=== PATIENT | female | born 1965 | race African-American/Black ===

== ENCOUNTER 2020-09-13 10:17 | Outpatient (REF) | payer OTHER, SELFPAY ==
[2020-09-13 14:20] LABS: Anion Gap 13 (12-20); Blood Urea Nitrogen 14 mg/dL (9-16); Calcium 9.5 mg/dL (8.4-10.2); Carbon Dioxide 30 mmol/L (22-29); Chloride 103 mmol/L (96-108); Estimated Glomerular Filt Rate > 60; Glucose Random 76 mg/dL (60-115); Potassium 4.1 mmol/L (3.3-5.1); Sodium 142 mmol/L (135-145)
== END 2020-09-13 10:18 | disposition home or self-care (01) ==
LOC: HO.WFDLDS 10:17
PROVIDERS: Visit Provider Hospitalist
DX: L50.1 Idiopathic urticaria (principal)
CPT/HCPCS: 36415; 80048

== ENCOUNTER 2021-12-11 09:23 | Outpatient (REF) | payer OTHER, SELFPAY ==
[2021-12-11 11:51] LABS: Anion Gap 14 (12-20); Blood Urea Nitrogen 12 mg/dL (9-16); Carbon Dioxide 25 mmol/L (22-29); Chloride 106 mmol/L (96-108); Estimated Glomerular Filt Rate > 60; Glucose Random 113 mg/dL (60-115); Potassium 4.4 mmol/L (3.3-5.1); Sodium 141 mmol/L (135-145)
== END 2021-12-11 09:24 | disposition home or self-care (01) ==
LOC: HO.WFDLDS 09:23
PROVIDERS: Visit Provider Hospitalist
DX: I10 Essential (primary) hypertension (principal)
CPT/HCPCS: 36415; 80048

== ENCOUNTER 2023-07-02 15:02 | Outpatient (AMB) | payer OTHER, SELFPAY ==
[2023-07-02 15:12] VITALS: BP 136/76; PULSE 96; RESP 13; TEMP 36.6; O2SAT 99; BMI 51.4
--- NOTE | 2023-07-02 15:12 | MHC.PC.OV ---
Vital Signs 07/02/23 15:12 Height 5 ft Weight 263 lb 4 oz BMI 51.4 BP 136/76 Blood Pressure Location Rt brachial Position Sitting Respiration 13 Pulse 96 Pulse Source Pulse Oximeter Temp 97.8 F Temp Source Temporal Artery Scan Pulse Oximetry (%) 99 Oxygen Delivery Method Room Air Intake Visit Reasons: Transfer of care, BP Intake Note: Patient would like to talk to community navigator. [place] Hammerer Required: No Accompanied by: Self / Same As Patient Allergies amlodipine [From [facility]] Allergy (Intermediate, Verified 07/02/23 15:27) Cough, Rash chlorthalidone Allergy (Intermediate, Verified 07/02/23 15:27) rash Seasonal Allergies Allergy (Intermediate, Verified 07/02/23 15:27) Watery Eye lisinopril Allergy (Verified 07/02/23 15:27) Rash,cough Medication List - Last Reconciled 07/02/23 by Sumanth Layne CNP albuterol sulfate 90 mcg/actuation 2 puffs inhalation Q4H PRN teuvhkg-cqafpfanmupoo-pxevraqo 250-250-65 mg (Excedrin Migraine) 1 tab PO Q4-6H PRN carvedilol 12.5 mg PO BID cetirizine (Zyrtec) 30 mg PO DAILY cholecalciferol (vitamin D3) 125 mcg PO DAILY clonidine HCl 0.1 mg PO BID famotidine 20 mg PO BID furosemide 20 mg PO BID losartan 25 mg PO BID 90 days megestrol 80 mg PO BID Tobacco use date assessed: 07/02/23 Dental Screening Dental Screen Date: 07/02/23 Did you have a dental visit in the last 12 months?: Yes Did you have a dental problem in the last 6 months where you did not have access to dental care?: No Was dental information given to patient?: Patient has dentist HPI HPI Comments History of Present Illness Details 58-year-old female presents for transfer of care Her former PCP is STACIE who is no longer with the practice. Her last office visit was in September 2022. Her last blood work was over a year ago She has history of hypertension, asthma, migraines, obesity, sleep apnea, and uterine cancer. She also reports history of bilateral congenital hip dysplasia, right worse than left. Reports pain to the right hip and knee and slow and difficult movements from sitting to standing She admits to taking her medication as prescribed without adverse reactions She notes that she gained 40 lb within a year since starting megestrol for endometrial cancer. She has been making dietary changes and have not gain weight in the past 2 months. She notes that her FORMING MACHINE UPKEEP MECHANIC HELPER does not recommend hysterectomy because she is Judaism and her lena does not permit blood transfusions She reports swelling to both ankles and dry skin to her legs and feet She is followed by [facility] [employer]MING MACHINE UPKEEP MECHANIC HELPER. Her last pap smear test was 07/2022: endometrial cancer Last colonoscopy: never had a colonoscopy Last mammogram was over 3 years ago : normal [facility] Medical History (Updated 07/02/23 @ 17:04 by Chayo Bender MA) Congenital dysplasia of hips, bilateral Gallbladder calculus Fibroids delivery delivered Surgical History History of hysteroscopy Social History Housing: House Alcohol intake: current Alcohol intake frequency: holidays/special occasions only Alcohol type: other Patient Tobacco Use Status: Never used Tobacco e-Cigarette/Vaping Use: Never Used service: No Current occupational status: employed 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 1. Little interest or pleasure in doing things: not at all 2. Feeling down, depressed, or hopeless: not at all 3. Trouble falling or staying asleep, or sleeping too much: not at all 4. Feeling tired or having little energy: not at all 5. Poor appetite or overeating: several days 6. Feeling bad about yourself - or that you are a failure or have let yourself or your family down: not at all 7. Trouble concentrating on things, such as reading the newspaper or watching television: not at all 8. Moving or speaking so slowly that other people could have noticed. Or the opposite - being so fidgety or restless that you have been moving around a lot more than usual: not at all 9. Thoughts that you would be better off or of hurting yourself in some way: not at all Total score: 1 Depression Screening Interpretation: Negative Depression Screening Done: Yes 29107 - PHQ-9 Billing: Yes Source: Developed by Drs. Salvatore Duran, Claudine Villanueva, Samuel Mistry and colleagues, with an educational alok from [employer]. Thrive Questionnaire Date Thrive assessed: 07/02/23 I am a: Patient What is your living situation today?: I have a steady place to live Within the past 12 months, did the food you bought not last and you didn't have the money to get more?: Sometimes True Within the past 12 months, did you worry whether your food would run out before you got money to buy more?: Sometimes True Do you have trouble paying for medicines?: No Do you have trouble getting transportation to medical appointments?: No Do you have trouble paying your heating and electricity bill?: No Do you have trouble taking care of your child, family member or friend?: Yes () Do you have trouble with day-to-day activities such as bathing, preparing meals, shopping, managing finances, etc.?: No Are you currently unemployed and looking for a job?: No Are you interested in more education?: No Please select the resources that you would like help with: None Currently or been in a relationship where the following occur: no concerns reported AUDIT C Alcohol Use Questionnaire (AUDIT-C) 1. How often do you have a drink containing alcohol?: Monthly or less 2. How many drinks containing alcohol do you have on a typical day when you are drinking?: 1 or 2 3. How often do you have six or more drinks on one occasion?: Never Total Score: 1 BETZY-7 AMB Questionnaire BETZY-7 Date BETZY - 7 assessed: 07/02/23 Feeling nervous, anxious, or on edge: 0 = Not at all Not being able to stop or control worryin = Not at all Worrying too much about different things: 0 = Not at all Trouble relaxin = Not at all Being so restless that it is hard to sit still: 0 = Not at all Becoming easily annoyed or irritable: 0 = Not at all Feeling afraid as if something awful might happen: 0 = Not at all Total BETZY-7 score (0-4 normal; 5-9 mild; 10-14 moderate; 15-21 severe): 0 Source: Developed by Drs. Salvatore Duran, Claudine Villanueva, Samuel Mistry and colleagues, with an educational alok from [employer]. BETZY-7 Assessment Billing BETZY-7 Assessment Tool: BETZY-7 Assessment 25625 ACT Questionnaire In the past 4 weeks, how much of the time did your asthma keep you from getting as much done at work, school or at home?: None of the time During the past 4 weeks, how often have you had shortness of breath?: Once a day During the past 4 weeks, how often did your asthma symptoms wake you up at night or earlier than usual in the morning?: Not at all During the past 4 weeks, how often have you had to use your rescue inhaler or nebulizer medication?: 1-2 times a week How would you rate your asthma control during the past 4 weeks?: Well controlled Score: 18 Review of Systems Const Details: Const Denies chills, Denies fatigue, Denies fever(s), Denies headache(s) and Denies weakness ENT Denies dizziness and Denies headache(s) Card Denies chest pain, Denies lightheadedness, Denies dyspnea and Denies other (Palpitations) Resp Denies cough, Denies dyspnea, Denies wheezing and Denies other ( shortness of breath) GI Denies abdominal pain, Denies melena, Denies hematochezia, Denies change in bowel habits, Denies dyspepsia and Denies nausea Denies hematuria and Denies dysuria Musc Denies abnormal gait, Denies myalgias, Denies arthralgias, Denies numbness and Denies tingling Skin/Breast Reports dry skin to legs and feet, Denies rash, Denies unusual bruising and Denies wounds Neuro Denies abnormal gait, Denies dizziness, Denies headache(s), Denies memory loss, Denies numbness, Denies Sensory deficit (Neuro), Denies tingling and Denies weakness Psych Denies anxiety, Denies depression, Denies memory loss Endo Denies cold intolerance, Denies fatigue, Denies heat intolerance, Denies polydipsia and Denies polyuria Aller/Immun Denies wheezing Physical exam (Primary Care) Vital Signs: Last Vital Signs Temp 97.8 F 07/02/23 15:12 Pulse 96 07/02/23 15:12 Resp 13 07/02/23 15:12 BP 136/76 07/02/23 15:12 Pulse Ox 99 07/02/23 15:12 Oxygen Delivery Method Room Air 07/02/23 15:12 BMI result Body Mass Index 51.4 Tobacco/Smoking Status: Tobacco use Status Tobacco use date assessed 07/02/23 07/02/23 15:28 Patient Tobacco Use Status Never used Tobacco 07/02/23 15:28 e-Cigarette/Vaping Use Never Used 07/02/23 15:28 PHQ-9: PHQ-9 Score PHQ-9: Total score 1 07/02/23 15:28 Depression Screening Interpretation: Negative Thrive Assessment: Date of Thrive Assessment Date Thrive assessed 07/02/23 07/02/23 15:28 Currently or been in a relationship where the following occur: no concerns reported Const Other: General: no acute distress and well developed Nutritional Appearance: well nourished Orientation/consciousness: patient oriented x3 HENMT Head: Yes normocephalic and Yes atraumatic Eyes General: appearance normal, both eyes and all related structures Pupils: Equal, round and reactive pupils present EOM: EOMs intact bilaterally Resp Effort & Inspection: normal respiratory effort Auscultation: clear to auscultation bilaterally Cardio Rate: regular rate Rhythm: regular rhythm Heart sounds: S1 normal heart sound present, S2 normal heart sound present, no gallops, no murmurs and no rubs GI Palpation (GI): No Abdominal aortic bruit present, Soft to palpation, nontender, No hepatosplenomegaly present and No Rebound tenderness present Auscultation: normal bowel sounds General: Yes no CVA tenderness Back/Spine/Pelvis Back: no CVA tenderness Cervical Spine: cervical ROM normal and No Cervical spine tenderness Thoracic/Lumbar Spine: thoraco-lumbar ROM normal, No pain with thoraco-lumbar ROM, No thoracic spinal tenderness and No lumbar spinal tenderness Extrem General: Yes normal to inspection, No calf tenderness Moderate nonpitting edema noted to both ankles She is slow to stand up from a sitting position and pivot with her right hip Skin General: warm and dry. Normal skin color. Normal skin turgor. Very dry skin noted to bilateral lower legs and feet. Skin is intact Lesions: no lesions Rashes: no rashes Trauma: no lacerations or abrasions Wounds: no wounds Nails: normal Neuro General: patient oriented x3, gait slow but normal and no focal neuro deficit Cranial nerves: Yes Equal, round and reactive pupils present Cognition (Neuro): normal cognition Gait exam (Neuro): Slow but normal gait present Sensory Exam: No Sensory deficit (Neuro) Psych Appearance: grossly normal Affect: normal affect Attitude: cooperative Thought process: Normal thought process present Assessment and Plan Assessment & Plan (1) Hypertension, essential, benign: Code(s): I10 - Essential (primary) hypertension Plan: Blood pressure is controlled, 136/76 Continue with current treatment regimen Low-sodium diet encouraged Will continue to monitor Follow-up in 1-2 months for an extended physical exam Return with symptoms or concerns Verbalized understanding and agreed with treatment plan (2) Uterine cancer: Code(s): C55 - Malignant neoplasm of uterus, part unspecified Plan: Megestrol as prescribed Continue follow-up with licensed practical vocational nurse as planned Verbalized understanding and agreed with the plan (3) Asthma, mild intermittent, well-controlled: Code(s): J45.20 - Mild intermittent asthma, uncomplicated Plan: ACT score is 18, partially controlled asthma Continue with current treatment regimen Follow-up with worsening or new symptoms Verbalized understanding and agreed with treatment plan (4) Sleep apnea: Code(s): G47.30 - Sleep apnea, unspecified Plan: Continue to use CPAP as instructed Follow-up with symptoms or concerns Verbalized understanding and agreed with the treatment plan (5) Breast cancer screening: Code(s): Z12.39 - Encounter for other screening for malignant neoplasm of breast Plan: Last mammogram was over 3 years ago : normal Mammogram ordered (6) Colon cancer screening: Code(s): Z12.11 - Encounter for screening for malignant neoplasm of colon Plan: She has never had a colonoscopy done Referred to Gastroenterology for a colonoscopy (7) Dry skin: Code(s): L85.3 - Xerosis cutis Plan: Reports dry skin to her legs and feet Very dry skin noted to bilateral lower legs and feet. Skin is intact Encouraged to use moisturizing lotion like cetaphil routinely Return with symptoms or concerns Verbalized understanding and agreed with plan (8) Swelling of both ankles: Code(s): M25.471 - Effusion, right ankle; M25.472 - Effusion, left ankle Plan: Reports swelling to both ankles Moderate edema noted to both ankles Encouraged to elevate her bilateral lower extremity to reduce swelling Low-salt diet encouraged Follow-up with worsening or new signs and symptoms Verbalized understanding and agreed with treatment plan (9) Chronic right hip pain: Code(s): M25.551 - Pain in right hip; G89.29 - Other chronic pain Plan: Reports pain to the right hip and knee and slow and difficult movements from sitting to standing. She attributes her symptoms to bilateral congenital hip dysplasia, right worse than left Tylenol or ibuprofen as needed for pain or discomfort Referred to physical therapy Follow-up with worsening or new symptoms Verbalized understanding and agreed with treatment plan (10) Chronic pain of right knee: Code(s): M25.561 - Pain in right knee; G89.29 - Other chronic pain Plan: As above Orders: Orders Complete Blood Count Auto Diff Today Z00.00 - Encounter for general adult medical examination without abnormal findings TSH reflex Free T4 Today Z00.00 - Encounter for general adult medical examination without abnormal findings MM screening mammo BI Today Z12.31 - Encounter for screening mammogram for malignant neoplasm of breast PT Evaluation and Treatment Today G89.29 - Other chronic pain, M25.551 - Pain in right hip, M25.561 - Pain in right knee Comprehensive [place]. Panel Fast Today Z00.00 - Encounter for general adult medical examination without abnormal findings Lipid Panel Today Z00.00 - Encounter for general adult medical examination without abnormal findings UA CC w/rflx Micro + Cult Today Z00.00 - Encounter for general adult medical examination without abnormal findings Referrals Gastroenterology Referral Z12.11 - Encounter for screening for malignant neoplasm of colon Medications: Changed From clonidine HCl 0.1 mg PO TID 270 tabs 1RF To clonidine HCl 0.1 mg PO BID Coding Level of Care Code Est Pt Level 4 (67678) Diagnoses Hypertension, essential, benign I10 Uterine cancer C55 Asthma, mild intermittent, well-controlled J45.20 Sleep apnea G47.30 Breast cancer screening Z12.39 Colon cancer screening Z12.11 Dry skin L85.3 Swelling of both ankles M25.471; M25.472 Chronic right hip pain M25.551; G89.29 Chronic pain of right knee M25.561; G89.29 Additional Codes BETZY-7 Assessment Billing - BETZY-7 Assessment Tool: BETZY-7 Assessment 67148 ([id number])
== END 2023-07-02 16:17 | disposition home or self-care (01) ==
PROVIDERS: PCP Hospitalist; Visit Provider Nurse Practitioner Family
DX: I10 Essential (primary) hypertension (principal); C55 Malignant neoplasm of uterus, part unspecified; J45.20 Mild intermittent asthma, uncomplicated; G47.30 Sleep apnea, unspecified; Z12.39 Encounter for other screening for malignant neoplasm of breast; Z12.11 Encounter for screening for malignant neoplasm of colon; L85.3 Xerosis cutis; M25.471 Effusion, right ankle; M25.472 Effusion, left ankle; M25.551 Pain in right hip; G89.29 Other chronic pain; M25.561 Pain in right knee
CPT/HCPCS: 99214

== ENCOUNTER 2023-08-17 09:35 | Outpatient (AMB) | payer OTHER, SELFPAY ==
[2023-08-17 09:35] VITALS: BP 140/73; PULSE 89; BMI 51.2
--- NOTE | 2023-08-17 09:35 | MHC.OFFVIS ---
Intake Vital Signs 08/17/23 09:35 Height 5 ft Weight 262 lb 5.601 oz BMI 51.2 BP 140/73 H Blood Pressure Location Lt brachial Position Sitting Pulse 89 Pulse Source Pulse Oximeter Intake Visit Reasons: Colonoscopy Screening Intake Note: Pt presents to the office today for a colonoscopy screening. Pt states she has never had a previous colonoscopy. Pt denies any GI concerns at this time. Allergies amlodipine [From Norvasc] Allergy (Intermediate, Verified 08/17/23 09:38) Cough, Rash chlorthalidone Allergy (Intermediate, Verified 08/17/23 09:38) rash Seasonal Allergies Allergy (Intermediate, Verified 08/17/23 09:38) Watery Eye lisinopril Allergy (Verified 08/17/23 09:38) Rash,cough HPI Colonoscopy Screening HPI Details 58 year old? female here today for pre colonoscopy screening.? Patient was sent to us by her PCP.? This is her first colonoscopy screening.? Patient denies any gastrointestinal symptoms in the past or at present.? However patient does report to have occasional constipation. Patient reports abdominal bloating. Patient reports that she feels bloated almost all the time. Patient thinks is because of being CPAP throughout the night. Patient denies any melena, hematochezia, unintentional weight loss or ribbon like stools. Denies any personal or family history of gastrointestinal disease, colon polyps, or cancer.? Denies history of difficulty with sedation or anesthesia in the past.? History of sleep apnea, uses CPAP. 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 Patient is on Zyrtec and H2 tierra daily. ? 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 [employer] Current occupational exposures/hazards: No Cognitive needs: No Hearing needs: No Vision needs: No Review of Systems Const Denies weight gain and Denies weight loss ENT Reports no additional complaints, Denies dysphagia and Denies odynophagia Card Reports no additional complaints Resp Reports no additional complaints GI Denies abdominal pain, Denies belching, Denies melena, Denies bloating, Denies change in bowel habits, Reports constipation (Occasional), Denies dysphagia, Denies excessive flatus, Denies dyspepsia, Denies heartburn, Denies diarrhea, Denies loose stools, Denies nausea, Denies odynophagia and Denies vomiting Reports no additional complaints Musc Reports no additional complaints Neuro Reports no additional complaints Psych Reports no additional complaints Endo Reports no additional complaints Physical Exam Vital Signs: Last Vital Signs Pulse 89 08/17/23 09:35 BP 140/73 H 08/17/23 09:35 BMI result Body Mass Index 51.2 Const General: healthy appearing, no acute distress and well developed Nutritional Appearance: obese Orientation/consciousness: patient oriented x3 Resp Effort & Inspection: normal respiratory effort, able to speak in complete sentences, no tracheal deviation and symmetric chest movement Auscultation: clear to auscultation bilaterally Cardio Rate: regular rate GI Inspection: Yes normal to inspection, Yes distended and Yes obesity Palpation (GI): Soft to palpation, not firm, nontender and No hepatosplenomegaly present Auscultation: normal bowel sounds General: Yes no CVA tenderness Back/Spine/Pelvis Back: no CVA tenderness Skin General skin exam: elasticity normal, turgor normal and dry skin Neuro General: patient oriented x3 Psych Appearance: grossly normal Mental Status: mental status grossly normal Assessment & Plan Assessment & Plan (1) Colon cancer screening: Code(s): Z12.11 - Encounter for screening for malignant neoplasm of colon (2) IBS (irritable bowel syndrome): Code(s): K58.9 - Irritable bowel syndrome without diarrhea Qualifiers: Irritable bowel syndrome type: without diarrhea Qualified Code(s): K58.9 - Irritable bowel syndrome without diarrhea Plan Patient is asking to have Cologuard done versus going for colonoscopy at this time. Patient will continue avoiding dietary triggers. Discussed low FODMAP diet. List of food recommended as well as list of food to avoid given to patient. Patient was encouraged to increase fluid intake and activity to promote better bowel motility. I will see her in 4 months, sooner on as needed basis. Patient is agreeable to this plan and verbalizes understanding of instructions. She was given the opportunity to ask questions and all questions answered. Thank you for allowing me to participate in her care Medications: New simethicone 125 mg PO BID-QID PRN 120 caps 3RF abdominal distention Coding Level of Care Code New Pt Level 3 (23650) Diagnoses Colon cancer screening Z12.11 Irritable bowel syndrome without diarrhea K58.9 Irritable bowel syndrome type: without diarrhea Time Spent (min) 40 Comment 30 minutes spent with patient and additional 10 minutes spent reviewing her records
== END 2023-08-17 10:05 | disposition home or self-care (01) ==
PROVIDERS: PCP Nurse Practitioner Family; Visit Provider Nurse Practitioner Family
DX: K58.9 Irritable bowel syndrome, unspecified (principal); Z12.11 Encounter for screening for malignant neoplasm of colon
CPT/HCPCS: 99203

== ENCOUNTER → 2023-08-17 09:35 | Outpatient (BNVA) | payer OTHER, SELFPAY | PROVIDERS: PCP Nurse Practitioner Family; Visit Provider Nurse Practitioner Family ==

== ENCOUNTER 2023-08-18 09:43 | Outpatient (REF) | payer OTHER, SELFPAY ==
[2023-08-18 11:17] LABS: MANUAL DIFF FLAG NO
[2023-08-18 11:36] LABS: Basophils Percent Auto 0.3 % (0-2); Eosinophils Absolute Auto 0.2 X10*3/uL (0.0-0.4); Eosinophils Percent Auto 1.9 % (0-4); Hematocrit 40.2 % (37.0-47.0); Hemoglobin 13.3 g/dl (12.0-16.0); Imm Gran Abs Auto 0.04 X10*3/uL (0.00-0.03); Imm Gran Pct Auto 0.4 % (0.0-0.4); Lymphocytes Absolute Auto 3.8 X10*3/uL (1.2-4.9); Lymphocytes Percent Auto 38.7 % (20-40); Mean Corpuscular HGB Conc 33.1 g/dl (31.0-35.0); Mean Corpuscular Volume 90.5 fL (80.0-98.0); Mean Platelet Volume 9.6 fL (9.4-12.3); Monocytes Absolute Auto 0.7 X10*3/uL (0.1-1.2); Monocytes Percent Auto 6.6 % (2-11); Neutrophils Absolute Auto 5.1 x10*3/uL (2.0-8.3); Neutrophils Percent Auto 52.1 % (45-73); Platelet Count 320 X10*3/uL (160-400); Red Blood Count 4.44 X10*6/uL (4.20-5.50); Red Cell Distribution Width 14.7 % (11.0-16.0); White Blood Count 9.8 X10*3/uL (4.8-10.8)
[2023-08-18 11:37] LABS: Appearance Urine Cloudy; Color Urine Yellow; Glucose Urine UA Negative (Negative); Leukocyte Esterase Urine Large (3+) (Negative); Nitrite Urine Negative (Negative); PH 5.5 (5.0-9.0); Specific Gravity - Urine 1.015 (1.005-1.025); UMIC TRIGGER UACC YES; Urine Blood Negative (Negative); Urine Ketones Negative (Negative); Urine Protein Negative (Neg-Trace)
[2023-08-18 11:45] LABS: Bacteria Urine None Seen (None Seen); Hyaline Casts Urine 0-2 /LPF (0-2); RBC Urine 0-2 /HPF (0-2); UACC Culture Trigger YES; WBC Urine >50 /HPF (0-5)
[2023-08-18 11:51] LABS: Alanine Aminotransferase 12 U/L (0-31); Alkaline Phosphatase 85 U/L (39-117); Anion Gap 17 (12-20); Aspartate Amino Transferase 11 U/L (5-31); Bilirubin Total 0.5 mg/dL (0.0-1.0); Blood Urea Nitrogen 15 mg/dL (9-16); Calcium 9.9 mg/dL (8.4-10.2); Carbon Dioxide 24 mmol/L (22-29); Chloride 107 mmol/L (96-108); Cholesterol 147 mg/dL (<200); Estimated Glomerular Filt Rate 49; Glucose Fasting 131 mg/dL (60-99); HDL Cholesterol 39 mg/dL (>40); LDL Cholesterol Calculated 94 mg/dL (<100); Sodium 144 mmol/L (135-145); Total Protein 7.9 g/dL (6.5-8.0); Triglycerides 71 mg/dL (<150)
[2023-08-18 13:24] LABS: TSH reflex Free T4 1.58 uIU/mL (0.32-4.0)
== END 2023-08-18 09:44 | disposition home or self-care (01) ==
LOC: HO.WFDLDS 09:43
PROVIDERS: Visit Provider Nurse Practitioner Family
DX: Z00.00 Encounter for general adult medical examination without abnormal findings (principal); R82.90 Unspecified abnormal findings in urine
CPT/HCPCS: 36415; 80053; 80061; 81001; 84443; 85025; 87086

== ENCOUNTER → 2023-08-26 12:45 | Outpatient (BNV) | payer OTHER, SELFPAY | PROVIDERS: PCP Nurse Practitioner Family; Visit Provider Radiology Diagnostic Radiology | DX: Z12.31 Encounter for screening mammogram for malignant neoplasm of breast (principal) | CPT/HCPCS: 77063; 77067 ==

== ENCOUNTER 2023-08-26 12:48 | Outpatient (REF) | payer OTHER, SELFPAY ==
--- NOTE | ~2023-08-26 | MM_ITS ---
EXAMINATION: MM SCREENING DIGITAL BREAST TOMOSYNTHESIS, BILATERAL CLINICAL INFORMATION: Screening. Asymptomatic. COMPARISON: Mammography: This study is compared with prior exams dating back to 2016. TECHNIQUE: Digital breast tomosynthesis is performed in both the craniocaudal and mediolateral oblique views along with computer-aided detection (CAD). Synthesized 2D images are generated from the tomosynthesis. FINDINGS: There are scattered areas of fibroglandular density (ACR BI-RADS breast composition Category b). There are few grouped, coarse, benign calcifications in the left breast, there are no significant masses, abnormal calcifications, or other abnormalities in either breast. MM/MM tomosynthesis screening BI IMPRESSION: No mammographic evidence of malignancy. ASSESSMENT: BI-RADS BI-RADS 2 - Benign Findings RECOMMENDATION: Routine annual mammography screening. 1 year F/U This examination should not preclude the clinical evaluation of a suspicious palpable abnormality. This patient's information was entered into a reminder system with a target due date for their next mammogram.
== END 2023-08-26 12:49 | disposition home or self-care (01) ==
LOC: HO.MAMMO 12:48
PROVIDERS: PCP Nurse Practitioner Family; Visit Provider Nurse Practitioner Family
DX: Z12.31 Encounter for screening mammogram for malignant neoplasm of breast (principal)
CPT/HCPCS: 77063; 77067

== ENCOUNTER 2023-09-11 10:47 | Outpatient (AMB) | payer OTHER, SELFPAY ==
[2023-09-11 10:49] VITALS: BP 128/70; PULSE 97; RESP 13; TEMP 36.5; O2SAT 99; BMI 51.4
--- NOTE | 2023-09-11 10:49 | MHC.PC.OV ---
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 Accompanied by: Self / Same As Patient Allergies amlodipine [From [facility]] Allergy (Intermediate, Verified 09/11/23 11:09) Cough, Rash chlorthalidone Allergy (Intermediate, Verified 09/11/23 11:09) rash Seasonal Allergies Allergy (Intermediate, Verified 09/11/23 11:09) Watery Eye lisinopril Allergy (Verified 09/11/23 11:09) Rash,cough Medication List - Last Reconciled 09/11/23 by Sumanth Layne CNP albuterol sulfate 90 mcg/actuation 2 puffs inhalation Q4H PRN hyeifjh-ragssgdwfezyw-zwauoioh 250-250-65 mg (Excedrin Migraine) 1 tab PO Q4-6H PRN carvedilol 12.5 mg PO BID cetirizine (Zyrtec) 30 mg PO DAILY cholecalciferol (vitamin D3) 125 mcg PO DAILY clonidine HCl 0.1 mg PO BID famotidine 20 mg PO BID furosemide 20 mg PO BID losartan 25 mg PO BID 90 days megestrol 80 mg PO BID simethicone 125 mg PO BID-QID PRN Tobacco use date assessed: 09/11/23 Dental Screening Dental Screen Date: 09/11/23 Did you have a dental visit in the last 12 months?: Yes Did you have a dental problem in the last 6 months where you did not have access to dental care?: No Was dental information given to patient?: Patient has dentist HPI HPI Comments History of Present Illness Details 58-year-old female presents for an extended physical exam She has history of hypertension, asthma, migraines, obesity, sleep apnea, IBS and uterine cancer. She also reports history of bilateral congenital hip dysplasia, right worse than left. Reports pain to the right hip and knee and slow and difficult movements from sitting to standing She admits to taking her medication as prescribed without adverse reaction No acute symptoms at this time She is followed by [facility]. Her last pap smear test was 07/2022: endometrial cancer She has never had a colonoscopy. She was seen by [facility] gastroenterology on 08/17/2023; she chose Cologuard test versus colonoscopy Last mammogram was on 08/26/2023: Normal She notes that she has never been vaccinated for shingles and is currently not interested on the vaccines She has not up-to-date on the influenza vaccine and wishes to be vaccinated She has a follow-up appointment with Gastroenterology in 4 months for Cologuard and IBS PFSH Medical History Congenital dysplasia of hips, bilateral Gallbladder calculus Fibroids delivery delivered Surgical History History of hysteroscopy Social History Housing: House Alcohol intake: current Alcohol intake frequency: holidays/special occasions only Alcohol type: other Patient Tobacco Use Status: Never used Tobacco e-Cigarette/Vaping Use: Never Used service: No Current occupational status: employed 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 1. Little interest or pleasure in doing things: not at all 2. Feeling down, depressed, or hopeless: not at all 3. Trouble falling or staying asleep, or sleeping too much: not at all 4. Feeling tired or having little energy: not at all 5. Poor appetite or overeating: not at all 6. Feeling bad about yourself - or that you are a failure or have let yourself or your family down: not at all 7. Trouble concentrating on things, such as reading the newspaper or watching television: not at all 8. Moving or speaking so slowly that other people could have noticed. Or the opposite - being so fidgety or restless that you have been moving around a lot more than usual: not at all 9. Thoughts that you would be better off or of hurting yourself in some way: not at all Total score: 0 Depression Screening Interpretation: Negative Depression Screening Done: Yes [id number] - PHQ-9 Billing: Yes Source: Developed by Drs. Salvatore Duran, Claudine Villanueva, Samuel Mistry and colleagues, with an educational alok from [employer]. Thrive Questionnaire Date Thrive assessed: 09/11/23 I am a: Patient What is your living situation today?: I have a steady place to live Within the past 12 months, did the food you bought not last and you didn't have the money to get more?: Never true Within the past 12 months, did you worry whether your food would run out before you got money to buy more?: Never true Do you have trouble paying for medicines?: No Do you have trouble getting transportation to medical appointments?: No Do you have trouble paying your heating and electricity bill?: No Do you have trouble taking care of your child, family member or friend?: No Do you have trouble with day-to-day activities such as bathing, preparing meals, shopping, managing finances, etc.?: No Are you currently unemployed and looking for a job?: No Are you interested in more education?: No Please select the resources that you would like help with: None Currently or been in a relationship where the following occur: no concerns reported THRIVE Score: 0 AUDIT C Alcohol Use Questionnaire (AUDIT-C) 1. How often do you have a drink containing alcohol?: Monthly or less 2. How many drinks containing alcohol do you have on a typical day when you are drinking?: 1 or 2 3. How often do you have six or more drinks on one occasion?: Never Total Score: 1 BETZY-7 AMB Questionnaire BETZY-7 Date BETZY - 7 assessed: 09/11/23 Feeling nervous, anxious, or on edge: 0 = Not at all Not being able to stop or control worryin = Nearly every day Worrying too much about different things: 3 = Nearly every day Trouble relaxin = Not at all Being so restless that it is hard to sit still: 0 = Not at all Becoming easily annoyed or irritable: 0 = Not at all Feeling afraid as if something awful might happen: 0 = Not at all Total BETZY-7 score (0-4 normal; 5-9 mild; 10-14 moderate; 15-21 severe): 6 Source: Developed by Claudine Matson Kurt Kroenke and colleagues, with an educational alok from [employer]. BETZY-7 Assessment Billing BETZY-7 Assessment Tool: BETZY-7 Assessment 07659 ACT Questionnaire In the past 4 weeks, how much of the time did your asthma keep you from getting as much done at work, school or at home?: None of the time During the past 4 weeks, how often have you had shortness of breath?: Not at all During the past 4 weeks, how often did your asthma symptoms wake you up at night or earlier than usual in the morning?: Not at all During the past 4 weeks, how often have you had to use your rescue inhaler or nebulizer medication?: Once a week or less How would you rate your asthma control during the past 4 weeks?: Completely controlled ACT Interpretation: Positive Score: 24 Review of Systems Const Details: Denies chills, Denies fatigue, Denies fever(s), Denies headache(s) and Denies weakness HEENT Denies change in vision, Denies dizziness, Denies headache(s), Denies hearing loss, Denies nasal congestion, Denies sinus pain, Denies sinus pressure and Denies sore throat Card Denies chest pain, Denies lightheadedness, Denies dyspnea and Denies other (palpitations) Resp Denies cough, Denies dyspnea and Denies wheezing GI Denies abdominal pain, Denies melena, Denies hematochezia, Denies change in bowel habits, Denies dyspepsia and Denies nausea Denies hematuria and Denies dysuria Musc Denies abnormal gait, Denies myalgias, Denies arthralgias, Denies numbness and Denies tingling Skin/Breast Denies rash, Denies unusual bruising and Denies wounds Neuro Denies abnormal gait, Denies dizziness, Denies headache(s), Denies memory loss, Denies numbness, Denies Sensory deficit (Neuro), Denies tingling and Denies weakness Psych Denies anxiety, Denies depression and Denies memory loss Endo Denies cold intolerance, Denies fatigue, Denies heat intolerance, Denies polydipsia and Denies polyuria Frederick/Lymph Denies easy bleeding and Denies easy bruising Aller/Immun Denies wheezing Physical exam (Primary Care) Vital Signs: Last Vital Signs Temp 97.7 F 09/11/23 10:49 Pulse 97 09/11/23 10:49 Resp 13 09/11/23 10:49 BP 128/70 09/11/23 10:49 Pulse Ox 99 09/11/23 10:49 Oxygen Delivery Method Room Air 09/11/23 10:49 BMI result Body Mass Index 51.4 Tobacco/Smoking Status: Tobacco use Status Tobacco use date assessed 09/11/23 09/11/23 11:01 Patient Tobacco Use Status Never used Tobacco 09/11/23 11:01 e-Cigarette/Vaping Use Never Used 09/11/23 11:01 PHQ-9: PHQ-9 Score PHQ-9: Total score 0 09/11/23 11:01 Depression Screening Interpretation: Negative Thrive Assessment: Date of Thrive Assessment Date Thrive assessed 09/11/23 09/11/23 11:01 Currently or been in a relationship where the following occur: no concerns reported Const Other: General: no acute distress, well developed, alert and awake Nutritional Appearance: well nourished Orientation/consciousness: patient oriented x3 HENMT Head: Yes normocephalic and Yes atraumatic Ears: hearing grossly normal bilaterally and TM's normal bilaterally General nose exam: Normal external nose present and Normal nares present Mouth: Normal oral and palatal mucosa present and moist mucous membranes Teeth and gingiva: dentition normal Throat: Yes oropharynx normal Eyes Pupils: Equal, round and reactive pupils present and Pupil accommodation reflex normal EOM: EOMs intact bilaterally Neck Neck: Yes normal visual inspection, Yes no lymphadenopathy and Yes trachea midline Thyroid: Thyroid normal Carotids: no bruits Lymphatic: no lymphadenopathy noted Chest Chest palpation & inspection: normal inspection of the chest Resp Effort & Inspection: normal respiratory effort Auscultation: clear to auscultation bilaterally Cardio Rate: regular rate Rhythm: regular rhythm Heart sounds: S1 normal heart sound present, S2 normal heart sound present, no gallops, no murmurs and no rubs Bruits: no abdominal aortic bruits and no carotid bruits GI Palpation (GI): No Abdominal aortic bruit present, Soft to palpation, nontender, No hepatosplenomegaly present and No Rebound tenderness present Auscultation: normal bowel sounds General: Yes no CVA tenderness Back/Spine/Pelvis Back: no CVA tenderness Cervical Spine: cervical ROM normal and No Cervical spine tenderness Thoracic/Lumbar Spine: thoraco-lumbar ROM normal, No pain with thoraco-lumbar ROM, No thoracic spinal tenderness and No lumbar spinal tenderness Skin General: warm and dry. Normal skin color. Normal skin turgor. Dry skin to her lower legs, ankles, and feet Lesions: no lesions Rashes: no rashes Trauma: no lacerations or abrasions Wounds: no wounds Nails: normal Neuro General: patient oriented x3, gait normal and CN's II-XI intact bilaterally Cranial nerves: Yes Equal, round and reactive pupils present Cognition (Neuro): normal cognition Gait exam (Neuro): Normal gait present Motor exam (neuro): 5/5 motor strength present throughout Sensory Exam: No Sensory deficit (Neuro) Deep tendon reflexes (DTR's): Right patellar reflex intensity grade: 2+ and Left patellar reflex intensity grade: 2+ Extrem General: Yes normal to inspection, No edema and No calf tenderness Psych Appearance: grossly normal Affect: normal affect Attitude: cooperative Thought process: Normal thought process present Assessment and Plan Assessment & Plan (1) Normal physical examination, routine: Code(s): Z00.00 - Encounter for general adult medical examination without abnormal findings Plan: No significant physical restrictions or limitations noted Continue current treatment regimen Healthy diet and routine exercise encouraged Follow-up with symptoms or concerns Verbalized understanding and agreed with treatment plan (2) Elevated fasting glucose: Code(s): R73.01 - Impaired fasting glucose Plan: Recent lab results reviewed with the patient; unremarkable findings except for elevated fasting glucose, 131 Will repeat fasting glucose. 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 Skin is intact She admits to using cetaphil moisturizing cream sparingly Encouraged to use Cetaphil 2-3 times daily Return with symptoms or concerns Verbalized understanding and agreed with plan (5) Vaccine counseling: Code(s): Z71.85 - Encounter for immunization safety counseling Plan: She has not been vaccinated for shingles and declines this vaccine She will receive the flu vaccine at the office today Instructed on importance of vaccination and encouraged to get vaccinated for shingles (6) Vitamin D deficiency: Code(s): E55.9 - Vitamin D deficiency, unspecified Plan: On vitamin D3 125 mcg daily Continue current treatment regimen Will check vitamin-D levels and make changes as needed Orders: Orders Glucose Fasting Today R73.01 - Impaired fasting glucose Vitamin D 25-OH Total Today E55.9 - Vitamin D deficiency, unspecified Coding Level of Care Code Est Pt Prev Care 40-64y(48008) Diagnoses Normal physical examination, routine Z00.00 Elevated fasting glucose R73.01 Morbid obesity with BMI of 50.0-59.9, adult E66.01; Z68.43 Dry skin L85.3 Vaccine counseling Z71.85 Vitamin D deficiency E55.9 Additional Codes BETZY-7 Assessment Billing - BETZY-7 Assessment Tool: BETZY-7 Assessment 48009 ([id number])
== END 2023-09-11 11:39 | disposition home or self-care (01) ==
PROVIDERS: PCP Nurse Practitioner Family; Visit Provider Nurse Practitioner Family
DX: Z00.00 Encounter for general adult medical examination without abnormal findings (principal); E66.01 Morbid (severe) obesity due to excess calories; Z68.43 Body mass index [BMI] 50.0-59.9, adult; Z23 Encounter for immunization; R73.01 Impaired fasting glucose; L85.3 Xerosis cutis; Z71.85 Encounter for immunization safety counseling; E55.9 Vitamin D deficiency, unspecified
CPT/HCPCS: 90471; 90686; 99396

== ENCOUNTER 2023-09-16 10:18 | Outpatient (REF) | payer OTHER, SELFPAY ==
[2023-09-16 14:20] LABS: Appearance Urine Clear; Color Urine Yellow; Glucose Urine UA Negative (Negative); Leukocyte Esterase Urine Moderate (2+) (Negative); Nitrite Urine Negative (Negative); PH 5.5 (5.0-9.0); UMIC TRIGGER UACC YES; Urine Blood Negative (Negative); Urine Ketones Negative (Negative); Urine Protein Negative (Neg-Trace)
[2023-09-16 14:27] LABS: Bacteria Urine None Seen (None Seen); Hyaline Casts Urine 0-2 /LPF (0-2); RBC Urine 0-2 /HPF (0-2); Squamous Epithelial Cell Urine 0-2 /HPF (0-2); UACC Culture Trigger YES
[2023-09-16 15:39] LABS: Glucose Fasting 104 mg/dL (60-99)
[2023-09-16 15:51] LABS: Vitamin D 25-OH Total 39.4 ng/mL (>30)
== END 2023-09-16 10:19 | disposition home or self-care (01) ==
LOC: HO.WFDLDS 10:18
PROVIDERS: Visit Provider Nurse Practitioner Family
DX: R73.01 Impaired fasting glucose (principal); E55.9 Vitamin D deficiency, unspecified; R82.90 Unspecified abnormal findings in urine
CPT/HCPCS: 36415; 81001; 82306; 82947; 87086

== ENCOUNTER 2023-09-22 17:58 | Outpatient (AMB) | payer OTHER, SELFPAY ==
--- NOTE | 2023-09-22 17:35 | MHC.PC.OV ---
Intake Visit Reasons: elevated fasting glucose Defense Attorney Required: No Allergies amlodipine [From [facility]] Allergy (Intermediate, Verified 09/22/23 17:36) Cough, Rash chlorthalidone Allergy (Intermediate, Verified 09/22/23 17:36) rash Seasonal Allergies Allergy (Intermediate, Verified 09/22/23 17:36) Watery Eye lisinopril Allergy (Verified 09/22/23 17:36) Rash,cough Tobacco use date assessed: 09/11/23 HPI HPI Comments History of Present Illness Details Patient presents for telehealth visit for elevated fasting glucose Her previous fasting glucose was elevated, 131, recent fasting glucose is 104 GFR is low, 49 She admits to taking her medications as prescribed without adverse reactions She offers no complaints and denies acute symptoms at this time [facility] Medical History Congenital dysplasia of hips, bilateral Gallbladder calculus Fibroids delivery delivered Surgical History History of hysteroscopy Social History Housing: House Alcohol intake: current Alcohol intake frequency: holidays/special occasions only Alcohol type: other Patient Tobacco Use Status: Never used Tobacco e-Cigarette/Vaping Use: Never Used service: No Current occupational status: employed 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 Salvatore Duran, Claudine Villanueva, Samuel Mistry and colleagues, with an educational alok from [employer]. Review of Systems Const Details: Const Denies chills, Denies fatigue, Denies fever(s), Denies headache(s) and Denies weakness ENT Denies dizziness and Denies headache(s) Card Denies chest pain, Denies lightheadedness, Denies dyspnea and Denies other (Palpitations) Resp Denies cough, Denies dyspnea, Denies wheezing and Denies other ( shortness of breath) GI Denies abdominal pain, Denies melena, Denies hematochezia, Denies change in bowel habits, Denies dyspepsia and Denies nausea Denies hematuria and Denies dysuria Musc Denies abnormal gait, Denies myalgias, Denies arthralgias, Denies numbness and Denies tingling Skin/Breast Denies rash, Denies unusual bruising and Denies wounds Neuro Denies abnormal gait, Denies dizziness, Denies headache(s), Denies memory loss, Denies numbness, Denies Sensory deficit (Neuro), Denies tingling and Denies weakness Psych Denies anxiety, Denies depression, Denies memory loss Endo Denies cold intolerance, Denies fatigue, Denies heat intolerance, Denies polydipsia and Denies polyuria Aller/Immun Denies wheezing Physical exam (Primary Care) Tobacco/Smoking Status: Tobacco use Status Tobacco use date assessed 09/11/23 09/22/23 17:35 Patient Tobacco Use Status Never used Tobacco 09/22/23 17:35 e-Cigarette/Vaping Use Never Used 09/22/23 17:35 Thrive Assessment: Date of Thrive Assessment Date Thrive assessed 09/11/23 09/22/23 17:35 Const Other: Telehealth visit. No physical exam Telehealth Telehealth Location of provider rendering services: practice address Location of patient: address on file Patient Identification confirmed using: Name, : Yes Telehealth method: voice only Patient verbally consented to treatment: Yes Patient verbally consented to billing insurance company: Yes Patient informed of any privacy concerns related to visit: Yes Assessment and Plan Assessment & Plan (1) Elevated fasting glucose: Code(s): R73.01 - Impaired fasting glucose Plan: Recent labs reviewed with the patient Fasting glucose is slightly elevated, 104. Previous fasting glucose was 131 Will check A1c Advised to get blood work done before next visit Follow-up for an office or telehealth visit in 2-3 weeks or return sooner with symptoms or concerns Verbalized understanding and agreed with treatment plan (2) Kidney disease: Code(s): N28.9 - Disorder of kidney and ureter, unspecified Plan: Recent GFR is low, 49 Will recheck kidney function Will also check urine microalbumin/creatinine ratio Will review results and make changes as needed Adequate hydration encouraged She notes that she is followed by Nephrology at [facility] kidney and transplant for hypertension; her last visit was in 05/2023; she has a follow-up appointment on 10/07/2023 Follow-up in 2-3 weeks Verbalized understanding and agreed with the plan Orders: Orders Microalbumin, Random (w Creat) Today N28.9 - Disorder of kidney and ureter, unspecified Hemoglobin A1c Today R73.01 - Impaired fasting glucose Basic Metabolic Panel Today N28.9 - Disorder of kidney and ureter, unspecified Coding Level of Care Code Tele Est Pt Level 3 (34281) Diagnoses Elevated fasting glucose R73.01 Kidney disease N28.9 Time Spent (min) 15
== END 2023-09-22 18:10 | disposition home or self-care (01) ==
LOC: HO.HMGFM 17:58
PROVIDERS: PCP Nurse Practitioner Family; Visit Provider Nurse Practitioner Family
DX: R73.01 Impaired fasting glucose (principal); N28.9 Disorder of kidney and ureter, unspecified
CPT/HCPCS: 99442

== ENCOUNTER 2023-10-07 16:33 | Outpatient (AMB) | payer OTHER, SELFPAY ==
[2023-10-07 16:39] VITALS: BP 150/70; PULSE 93; BMI 51.0
--- NOTE | 2023-10-07 16:39 | MHC.OFFVIS ---
Intake Vital Signs 10/07/23 16:39 Height 5 ft Weight 261 lb 0.437 oz BMI 51.0 BP 150/70 H Blood Pressure Location Lt brachial Position Sitting Pulse 93 Intake Visit Reasons: colonoscopy screening/+ cologuard Intake Note: Patient in office today for follow up to discuss colonoscopy, CC: Patient reports occasional constipation. She is here to discuss colonoscopy after + cologuard. Early Intervention Specialist Required: No Allergies Fish Containing Products Allergy (Severe, Verified 10/07/23 16:44) Anaphylaxis shellfish derived Allergy (Severe, Verified 10/07/23 16:44) Anaphylaxis amlodipine [From Norvasc] Allergy (Intermediate, Verified 10/07/23 16:44) Cough, Rash chlorthalidone Allergy (Intermediate, Verified 10/07/23 16:44) rash Seasonal Allergies Allergy (Intermediate, Verified 10/07/23 16:44) Watery Eye lisinopril Allergy (Verified 10/07/23 16:44) Rash,cough HPI colonoscopy screening/+ cologuard HPI Details Colon cancer screening IBS (irritable bowel syndrome) Plan Patient is asking to have Cologuard done versus going for colonoscopy at this time. Patient will continue avoiding dietary triggers. Discussed low FODMAP diet. List of food recommended as well as list of food to avoid given to patient. Patient was encouraged to increase fluid intake and activity to promote better bowel motility. I will see her in 4 months, sooner on as needed basis. Patient is agreeable to this plan and verbalizes understanding of instructions. She was given the opportunity to ask questions and all questions answered. ? Thank you for allowing me to participate in her care Medications New simethicone 125 mg PO BID-QID PRN 120 caps 3RF abdominal distention TODAY'S VISIT Patient is here today for follow-up and to discuss going for colonoscopy. Patient had positive Cologuard in the beginning of this month. And she is agreeing to go for colorectal screening. Patient reports that now that she is taking Senokot she is moving her bowels better. Patient occasionally will have MiraLax on as needed basis. Patient denies any issues with anesthesia in the past. History of sleep apnea and morbid obesity. Patient is not on any blood thinners, however she is taking Excedrin migraine at times. Patient denies melena, hematochezia, unintentional weight loss or ribbon like stools. No known family history of CRC. Denies any infectious diseases in the past or present. History of asthma. Denies any cardiac or respiratory symptoms. Occasional acid reflux that is controlled with famotidine. 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 [employer] Current occupational exposures/hazards: No Cognitive needs: No Hearing needs: No Vision needs: No Review of Systems Const Denies weight gain and Denies weight loss ENT Reports no additional complaints, Denies dysphagia and Denies odynophagia Card Reports no additional complaints Resp Reports no additional complaints GI Denies abdominal pain, Denies belching, Denies melena, Denies bloating, Denies change in bowel habits, Denies dysphagia, Denies excessive flatus, Denies dyspepsia, Denies heartburn, Denies diarrhea, Denies loose stools, Denies nausea, Denies odynophagia and Denies vomiting Musc Reports no additional complaints Neuro Reports no additional complaints Psych Reports no additional complaints Endo Reports no additional complaints Physical Exam Vital Signs: Last Vital Signs Pulse 93 10/07/23 16:39 BP 150/70 H 10/07/23 16:39 BMI result Body Mass Index 51.0 Const General: healthy appearing and no acute distress Nutritional Appearance: obese Orientation/consciousness: patient oriented x3 Resp Effort & Inspection: normal respiratory effort, able to speak in complete sentences, no tracheal deviation and symmetric chest movement Auscultation: clear to auscultation bilaterally Cardio Rate: regular rate GI Inspection: Yes obesity Palpation (GI): not firm, nontender and No hepatosplenomegaly present Auscultation: normal bowel sounds General: Yes no CVA tenderness Back/Spine/Pelvis Back: no CVA tenderness Skin General skin exam: elasticity normal, turgor normal and dry skin Neuro General: patient oriented x3 Psych Appearance: grossly normal Mental Status: mental status grossly normal Assessment & Plan Assessment & Plan (1) Morbid obesity with BMI of 50.0-59.9, adult: Code(s): E66.01 - Morbid (severe) obesity due to excess calories; Z68.43 - Body mass index [BMI] 50.0-59.9, adult (2) Positive colorectal cancer screening using Cologuard test: Code(s): R19.5 - Other fecal abnormalities (3) IBS (irritable bowel syndrome): Code(s): K58.9 - Irritable bowel syndrome without diarrhea Qualifiers: Irritable bowel syndrome type: without diarrhea Qualified Code(s): K58.9 - Irritable bowel syndrome without diarrhea Plan Patient will continue taking Senokot daily. Patient has sleep apnea and morbid obesity. Has not had recent procedure where she would require anesthesia. However patient denies having any issues with anesthesia in the past. Not on any anticoagulation medication, however is taking Excedrin on as needed basis. Please make sure that patient is not taking Excedrin for 5-7 days before the procedure. Patient denies any cardiac or respiratory symptoms. This will be diagnostic colonoscopy as patient had positive Cologuard. What to expect before during and after procedure discussed with patient. Clear liquid diet as well as good bowel prep discussed with patient. Patient will be seen at the office after the procedure, sooner on as needed basis. Patient is agreeable to this plan and verbalizes understanding of instructions. She was given the opportunity to ask questions and all questions answered. Thank you for allowing me to participate in her care Medications: New bisacodyl (Dulcolax (bisacodyl)) take 4 tabs at noon the day before your colonoscopy 20 mg (4 x 5 mg) PO ONCE 4 tabs 0RF 1 day Z12.11 - Encounter for screening for malignant neoplasm of colon polyethylene glycol 3350 (Miralax) As directed by gastroenterology department at [facility] 238 grams PO ONCE 238 grams 0RF Z12.11 - Encounter for screening for malignant neoplasm of colon sennosides (Natural Senna Laxative) 17.2 mg (2 x 8.6 mg) PO BEDTIME 60 tabs 3RF constipation K59.00 - Constipation, unspecified Coding Level of Care Code Est Pt Level 3 (44780) Diagnoses Morbid obesity with BMI of 50.0-59.9, adult E66.01; Z68.43 Positive colorectal cancer screening using Cologuard test R19.5 Irritable bowel syndrome without diarrhea K58.9 Irritable bowel syndrome type: without diarrhea Time Spent (min) 30 Comment 20 minutes spent with patient and additional 10 minutes spent reviewing her records
== END 2023-10-07 16:56 | disposition home or self-care (01) ==
PROVIDERS: PCP Nurse Practitioner Family; Visit Provider Nurse Practitioner Family
DX: E66.01 Morbid (severe) obesity due to excess calories (principal); Z68.43 Body mass index [BMI] 50.0-59.9, adult; R19.5 Other fecal abnormalities; K58.9 Irritable bowel syndrome, unspecified
CPT/HCPCS: 99213

== ENCOUNTER → 2023-10-07 16:33 | Outpatient (BNVA) | payer OTHER, SELFPAY | PROVIDERS: PCP Nurse Practitioner Family; Visit Provider Nurse Practitioner Family ==

== ENCOUNTER 2024-02-12 11:37 | Outpatient (AMB) | payer OTHER, SELFPAY ==
--- NOTE | 2024-02-12 11:43 | A.OFFPC_ITS ---
Vital Signs 02/12/24 11:46 Height 5 ft Weight 258 lb BMI 50.4 BP 130/62 Blood Pressure Location Rt brachial Position Sitting Respiration 18 Pulse 92 Pulse Source Pulse Oximeter Pulse Oximetry (%) 96 Oxygen Delivery Method Room Air Intake Visit Reasons: FollowUpBlodClogFMLA Intake Note: Patient is here to follow up on Blood Clot, FMLA. Final Cigar And Box Examiner Required: No Dragger: Not Required per policy Accompanied by: Self / Same As Patient Allergies Fish Containing Products Allergy (Severe, Verified 02/12/24 12:15) Anaphylaxis shellfish derived Allergy (Severe, Verified 02/12/24 12:15) Anaphylaxis amlodipine [From Norvasc] Allergy (Intermediate, Verified 02/12/24 12:15) Cough, Rash chlorthalidone Allergy (Intermediate, Verified 02/12/24 12:15) rash Seasonal Allergies Allergy (Intermediate, Verified 02/12/24 12:15) Watery Eye lisinopril Allergy (Verified 02/12/24 12:15) Rash,cough Medication List - Last Reconciled 02/12/24 by Sumanth Layne CNP albuterol sulfate 90 mcg/actuation 2 puffs inhalation Q4H PRN apixaban (Eliquis) 5 mg PO BID puaseoj-lvjpryetwhmmq-ttrqltuw 250-250-65 mg (Excedrin Migraine) 1 tab PO Q4-6H PRN bisacodyl (Dulcolax (bisacodyl)) 20 mg (4 x 5 mg) PO ONCE 1 day carvedilol 12.5 mg PO BID cetirizine (Zyrtec) 30 mg PO DAILY cholecalciferol (vitamin D3) 125 mcg PO DAILY clonidine HCl 0.1 mg PO BID famotidine 20 mg PO BID furosemide 20 mg PO BID losartan 25 mg PO BID 90 days megestrol 80 mg PO BID polyethylene glycol 3350 (Miralax) 238 grams PO ONCE sennosides (Natural Senna Laxative) 17.2 mg (2 x 8.6 mg) PO BEDTIME simethicone 125 mg PO BID-QID PRN Tobacco use date assessed: 02/12/24 Dental Screening Dental Screen Date: 09/11/23 HPI HPI Comments History of Present Illness Details 58-year-old female presents for hospital follow-up visit She was evaluated and treated for DVT at [facility] ED on 01/04/2024. She followed up in the ED after ultrasound revealed DVT at her caramel candy maker helper oncologist office. She has history of uterine cancer and had a D&C on 12/17/2023. She notes her right leg has been swollen since the surgery. Labs, including kidney function were unremarkable with the ED. she was discharged home on Lovenox 120 mg SC every 12 hours x 1 week and instructions to follow-up with her PCP She was placed on Eliquis 5mg daily by her MATERIALS AND PROCESSES MANAGER oncologist. She notes that she has been taking the medication as prescribed without adverse reaction. She notes that she was informed by her MATERIALS AND PROCESSES MANAGER to follow up her her PCP for the DVT in her right leg. She notes the DVT was in her upper leg. She persists swelling from the right need to ankle, improving. 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 Salvatore Duran, Claudine Villanueva, Samuel Mistry and colleagues, with an educational alok from [employer]. Review of Systems Const Details: Const Denies chills, Denies fatigue, Denies fever(s), Denies headache(s) and Denies weakness ENT Denies dizziness and Denies headache(s) Card Denies chest pain, Denies lightheadedness, Denies dyspnea and Denies other (Palpitations) Resp Denies cough, Denies dyspnea, Denies wheezing and Denies other ( shortness of breath) GI Denies abdominal pain, Denies melena, Denies hematochezia, Denies change in bowel habits, Denies dyspepsia and Denies nausea Denies hematuria and Denies dysuria Musc Denies abnormal gait, Denies myalgias, Denies arthralgias, Denies numbness and Denies tingling Skin/Breast Denies rash, Denies unusual bruising and Denies wounds Neuro Denies abnormal gait, Denies dizziness, Denies headache(s), Denies memory loss, Denies numbness, Denies Sensory deficit (Neuro), Denies tingling and Denies weakness Psych Denies anxiety, Denies depression, Denies memory loss Endo Denies cold intolerance, Denies fatigue, Denies heat intolerance, Denies polydipsia and Denies polyuria Aller/Immun Denies wheezing Physical exam (Primary Care) Vital Signs: Last Vital Signs Pulse 92 02/12/24 11:46 Resp 18 02/12/24 11:46 BP 130/62 02/12/24 11:46 Pulse Ox 96 02/12/24 11:46 Oxygen Delivery Method Room Air 02/12/24 11:46 BMI result Body Mass Index 50.4 Tobacco/Smoking Status: Tobacco use Status Tobacco use date assessed 02/12/24 02/12/24 11:45 Patient Tobacco Use Status Never used Tobacco 02/12/24 11:45 e-Cigarette/Vaping Use Never Used 02/12/24 11:45 Thrive Assessment: Date of Thrive Assessment Date Thrive assessed 09/11/23 02/12/24 11:45 Const Other: General: no acute distress and well developed Nutritional Appearance: well nourished Orientation/consciousness: patient oriented x3 HENMT Head: Yes normocephalic and Yes atraumatic Eyes General: appearance normal, both eyes and all related structures Pupils: Equal, round and reactive pupils present EOM: EOMs intact bilaterally Resp Effort & Inspection: normal respiratory effort Auscultation: clear to auscultation bilaterally Cardio Rate: regular rate Rhythm: regular rhythm Heart sounds: S1 normal heart sound present, S2 normal heart sound present, no gallops, no murmurs and no rubs GI Palpation (GI): No Abdominal aortic bruit present, Soft to palpation, nontender, No hepatosplenomegaly present and No Rebound tenderness present Auscultation: normal bowel sounds General: Yes no CVA tenderness Back/Spine/Pelvis Back: no CVA tenderness Cervical Spine: cervical ROM normal and No Cervical spine tenderness Thoracic/Lumbar Spine: thoraco-lumbar ROM normal, No pain with thoraco-lumbar ROM, No thoracic spinal tenderness and No lumbar spinal tenderness Extrem General: Yes normal to inspection Right lower leg is slightly bigger than left. CML WNL. No pitting edema. Positive pedal and posterior tibial pulses bilaterally. No calf tenderness Skin General: warm and dry. Normal skin color. Normal skin turgor Lesions: no lesions Rashes: no rashes Trauma: no lacerations or abrasions Wounds: no wounds Nails: normal Neuro General: patient oriented x3, gait normal and no focal neuro deficit Cranial nerves: Yes Equal, round and reactive pupils present Cognition (Neuro): normal cognition Gait exam (Neuro): Normal gait present Sensory Exam: No Sensory deficit (Neuro) Psych Appearance: grossly normal Affect: normal affect Attitude: cooperative Thought process: Normal thought process present Results AMB Hemoglobin A1c AMB Hemoglobin A1c 9.0 % Last Edit by ARNOL Naylor on 02/12/24 12 :40 Assessment and Plan Assessment & Plan (1) Hospital discharge follow-up: Code(s): Z09 - Encounter for follow-up examination after completed treatment for conditions other than malignant neoplasm Plan: Diagnosed with DVT in December. Was evaluated in the ED and started on Lovenox. She is currently taking Eliquis 5 mg twice daily. She has not been evaluated by vascular. She continues to experience right lower extremity edema from her knee to ankle. No shortness a breath. Right lower leg is slightly bigger than left. CML WNL. No pitting edema. Positive pedal and posterior tibial pulses bilaterally. No calf tenderness. Gait is normal. Advised to continue current treatment regimen. Avoid prolonged standing and elevate the right leg to improve circulation Continue follow-up with caramel candy maker helper Oncology as planned. Referred to vascular surgery Follow-up with symptoms or concerns Verbalized understanding and agreed with the treatment plan (2) Right leg DVT: Code(s): I82.401 - Acute embolism and thrombosis of unspecified deep veins of right lower extremity Plan: As above (3) Diabetes: Code(s): E11.9 - Type 2 diabetes mellitus without complications Plan: She has history of elevated fasting glucose A1c today is 9%, above goal of less than 7.0% She notes she has never been evaluated by Ophthalmology a Podiatry Metformin 500 mg twice daily ordered. Advised to take as prescribed. Instructed on the risks, benefits, and potential adverse reactions of the medication ADA diet and routine exercise encouraged Referred to Ophthalmology and Podiatry Follow-up in 3 months or sooner with symptoms or concerns Verbalized understanding and agreed with the treatment Orders: Orders AMB Hemoglobin A1c Today Z13.9 - Encounter for screening, unspecified Lipid Panel Today E11.9 - Type 2 diabetes mellitus without complications Microalbumin, Random (w Creat) Today E11.9 - Type 2 diabetes mellitus without complications Referrals Ophthalmology Referral E11.9 - Type 2 diabetes mellitus without complications Podiatry Referral E11.9 - Type 2 diabetes mellitus without complications Medications: New metformin 500 mg PO BIDWMEAL 30 days 60 tabs 3RF Coding Level of Care Code Est Pt Level 4 (42412) Complex EM visit Add On G2211 Diagnoses Hospital discharge follow-up Z09 Right leg DVT I82.401 Diabetes E11.9
[2024-02-12 11:46] VITALS: BP 130/62; PULSE 92; RESP 18; O2SAT 96; BMI 50.4
== END 2024-02-12 12:46 | disposition home or self-care (01) ==
PROVIDERS: PCP Nurse Practitioner Family; Visit Provider Nurse Practitioner Family
DX: I82.401 Acute embolism and thrombosis of unspecified deep veins of right lower extremity (principal); Z09 Encounter for follow-up examination after completed treatment for conditions other than malignant neoplasm; E11.9 Type 2 diabetes mellitus without complications
CPT/HCPCS: 83036; 99214

== ENCOUNTER 2024-02-12 12:36 | Outpatient (REF) | payer OTHER, SELFPAY | END 2024-02-12 12:37 | disposition home or self-care (01) | LOC: HO.LAB 12:36 | PROVIDERS: Visit Provider Nurse Practitioner Family | DX: Z13.89 Encounter for screening for other disorder (principal) ==

== ENCOUNTER 2024-03-24 13:10 | Outpatient (AMB) | payer OTHER, SELFPAY ==
[2024-03-24 13:14] VITALS: BP 126/70; PULSE 71; BMI 49.9
--- NOTE | 2024-03-24 13:14 | A.OFFVIS_ITS ---
Vital Signs 03/24/24 13:14 Height 5 ft Weight 255 lb 11.779 oz BMI 49.9 BP 126/70 Blood Pressure Location Rt brachial Position Sitting Pulse 71 Pulse Source Pulse Oximeter Intake Visit Reasons: T2DM/CONFIRMED Intake Note: NEW Patient presents today to establish treatment for Type 2 Diabetes Mellitus: Last Diabetic eye exam was on: DUE Last Podiatry exam was on: Does not see a Dye Machine Tender Most recent HbA1c: 9.0%, 02/12/2024 Random Glucose- 107 mg/dL, Today Engineer Technical Staff Required: No Accompanied by: Self / Same As Patient Allergies Fish Containing Products Allergy (Severe, Verified 03/24/24 13:16) Anaphylaxis shellfish derived Allergy (Severe, Verified 03/24/24 13:16) Anaphylaxis amlodipine [From Norvasc] Allergy (Intermediate, Verified 03/24/24 13:16) Cough, Rash chlorthalidone Allergy (Intermediate, Verified 03/24/24 13:16) rash Seasonal Allergies Allergy (Intermediate, Verified 03/24/24 13:16) Watery Eye lisinopril Allergy (Verified 03/24/24 13:16) Rash,cough Medication List - Last Reconciled 03/24/24 by Ale Grant MD albuterol sulfate 90 mcg/actuation 2 puffs inhalation Q4H PRN apixaban (Eliquis) 5 mg PO BID oernwti-xscwrezfevghe-mixxsopw 250-250-65 mg (Excedrin Migraine) 1 tab PO Q4-6H PRN BD Ultra-Fine Cee Pen Needle (pen needle, diabetic) As directed NS bisacodyl (Dulcolax (bisacodyl)) 20 mg (4 x 5 mg) PO ONCE 1 day carvedilol 12.5 mg PO BID cetirizine (Zyrtec) 30 mg PO DAILY cholecalciferol (vitamin D3) 125 mcg PO DAILY clonidine HCl 0.1 mg PO BID famotidine 20 mg PO BID furosemide 20 mg PO BID lancets test blood glucose once daily NS Lantus U-100 Insulin (insulin glargine) 10 units (0.1 mL) subcut QPM NS losartan 25 mg PO BID 90 days megestrol 80 mg PO BID OneTouch Verio Flex meter (blood-glucose meter) As directed NS OneTouch Verio test strips (blood sugar diagnostic) once daily NS polyethylene glycol 3350 (Miralax) 238 grams PO ONCE sennosides (Natural Senna Laxative) 17.2 mg (2 x 8.6 mg) PO BEDTIME simethicone 125 mg PO BID-QID PRN HPI Comments Details: 58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 Reports instituting some lifestyle changes and has lost 7 pounds since diagnosis. She was prescribed metformin at the time of diagnosis but has not taken it-says this is because she plans to undergo hysterectomy in the near future and says then she will no longer be on the medication. Discussed that A1C could delay surgery Denies polyuria, polydipsia Denies hypoglycemia No known macro/microvascular changes ROS see HPI PHYSICAL EXAM: GENERAL: Alert and oriented x 3. NAD EYES: EOMI. Anicteric. HENT: Moist mucous membranes. No scleral icterus. No cervical lymphadenopathy. LUNGS: Clear to auscultation bilaterally. CARDIOVASCULAR: Regular rate and rhythm. ABDOMEN: Obese, soft, non-tender +bs EXTREMITIES: No edema. Non-tender. SKIN: Acanthosis. NEUROLOGIC: No focal neurological deficits. CN II-XII grossly intact PSYCHIATRIC: Cooperative. 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 [employer] Current occupational exposures/hazards: No Cognitive needs: No Hearing needs: No Vision needs: No Physical Exam Vital Signs: Last Vital Signs Pulse 71 03/24/24 13:14 BP 126/70 03/24/24 13:14 BMI result Body Mass Index 49.9 Results Reviewed Results Reviewed: Laboratory Last Values Glucose (Clinic) 107 mg/dL (60-115) 03/24/24 13:21 Assessment & Plan Assessment & Plan (1) New onset type 2 diabetes mellitus: Code(s): E11.9 - Type 2 diabetes mellitus without complications Category: Medical Plan: Patient hesitant to start medications -she is hoping to normalize blood glucose with lifestyle changes and upcoming hysterectomy which will let her get off of megace. Discussed an A1C 9.0% could potentially delay surgery -she will start checking fasting am glucose. Advised if >200 then she should start insulin as she does not want to have to delay surgery, and moreover she is at risk of micro/macrovascular complications. Discussed goal fasting glucose. She has an appt with vice president of talent acquisition/onc in less than 2 weeks. She will follow up here in 3 weeks for reevaluation Medications: New Lantus U-100 Insulin (insulin glargine) 10 units (0.1 mL) subcut QPM 15 mL 3RF NS BD Ultra-Fine Cee Pen Needle (pen needle, diabetic) As directed 100 ea 3RF NS OneTouch Verio Flex meter (blood-glucose meter) As directed 1 ea 0RF NS E11.9 - Type 2 diabetes mellitus without complications lancets test blood glucose once daily 100 ea 3RF NS E11.9 - Type 2 diabetes mellitus without complications OneTouch Verio test strips (blood sugar diagnostic) once daily 100 ea 3RF NS E11.9 - Type 2 diabetes mellitus without complications Discontinued metformin Discontinued Reason: Doctor's Order 500 mg PO BIDWMEAL 30 days 60 tabs 3RF Coding Level of Care Code Est Pt Level 5 (66246) Diagnoses New onset type 2 diabetes mellitus E11.9 Time Spent (min) 45
[2024-03-24 13:24] LABS: Glucose, Whole Blood 107 mg/dL (60-115)
== END 2024-03-24 13:44 | disposition home or self-care (01) ==
PROVIDERS: PCP Nurse Practitioner Family; Visit Provider Internal Medicine
DX: E11.9 Type 2 diabetes mellitus without complications (principal)
CPT/HCPCS: 99215

== ENCOUNTER → 2024-03-24 13:10 | Outpatient (BNVA) | payer OTHER, SELFPAY | PROVIDERS: PCP Nurse Practitioner Family; Visit Provider Internal Medicine | DX: E11.9 Type 2 diabetes mellitus without complications (principal) | CPT/HCPCS: 82947 ==

== ENCOUNTER 2024-04-14 14:30 | Outpatient (AMB) | payer OTHER, SELFPAY ==
--- NOTE | 2024-04-14 14:34 | A.OFFVIS_ITS ---
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 Accompanied by: Self / Same As Patient Allergies Fish Containing Products Allergy (Severe, Verified 03/24/24 13:16) Anaphylaxis shellfish derived Allergy (Severe, Verified 03/24/24 13:16) Anaphylaxis amlodipine [From Norvasc] Allergy (Intermediate, Verified 03/24/24 13:16) Cough, Rash chlorthalidone Allergy (Intermediate, Verified 03/24/24 13:16) rash Seasonal Allergies Allergy (Intermediate, Verified 03/24/24 13:16) Watery Eye lisinopril Allergy (Verified 03/24/24 13:16) Rash,cough Medication List - Last Reconciled 04/14/24 by Ale Grant MD albuterol sulfate 90 mcg/actuation 2 puffs inhalation Q4H PRN apixaban (Eliquis) 5 mg PO BID fxiiayx-fjznizufjcwjj-fzutdahg 250-250-65 mg (Excedrin Migraine) 1 tab PO Q4-6H PRN BD Ultra-Fine Cee Pen Needle (pen needle, diabetic) As directed NS bisacodyl (Dulcolax (bisacodyl)) 20 mg (4 x 5 mg) PO ONCE 1 day carvedilol 12.5 mg PO BID cetirizine (Zyrtec) 30 mg PO DAILY cholecalciferol (vitamin D3) 125 mcg PO DAILY clonidine HCl 0.1 mg PO BID famotidine 20 mg PO BID furosemide 20 mg PO BID lancets test blood glucose once daily NS Lantus U-100 Insulin (insulin glargine) 10 units (0.1 mL) subcut QPM NS losartan 25 mg PO BID 90 days megestrol 80 mg PO BID OneTouch Verio Flex meter (blood-glucose meter) As directed NS OneTouch Verio test strips (blood sugar diagnostic) once daily NS polyethylene glycol 3350 (Miralax) 238 grams PO ONCE sennosides (Natural Senna Laxative) 17.2 mg (2 x 8.6 mg) PO BEDTIME simethicone 125 mg PO BID-QID PRN HPI Comments Details: 58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 Went to [facility]. Seen here 03/24/24- A1C on 02/12/24 9.0%-that was first diabetic range A1C Explains that since being on megestrol that her glucose as well as her weight have skyrocketed. Reports instituting some lifestyle changes and has lost 7 pounds since diagnosis. She was prescribed metformin at the time of diagnosis but has not taken it-says this is because she plans to undergo hysterectomy in the near future and says then she will no longer be on the medication. Discussed that A1C could delay surgery She did not start the prescribed medication. She has been strictly controlling her diet. She is checking her fasting glucose daily. Her range 86-136 with an average of 108. She is down 2 pounds since last month Denies polyuria, polydipsia Denies hypoglycemia No known macro/microvascular changes ROS see HPI PHYSICAL EXAM: GENERAL: Alert and oriented x 3. NAD EYES: EOMI. Anicteric. HENT: Moist mucous membranes. No scleral icterus. No cervical lymphadenopathy. LUNGS: Clear to auscultation bilaterally. CARDIOVASCULAR: Regular rate and rhythm. ABDOMEN: Obese, soft, non-tender +bs EXTREMITIES: No edema. Non-tender. SKIN: Acanthosis. NEUROLOGIC: No focal neurological deficits. CN II-XII grossly intact PSYCHIATRIC: Cooperative. 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 [employer] Current occupational exposures/hazards: No Cognitive needs: No Hearing needs: No Vision needs: No Physical Exam Vital Signs: Last Vital Signs Pulse 90 04/14/24 14:35 BP 122/66 04/14/24 14:35 BMI result Body Mass Index 49.5 Results Reviewed Results Reviewed: Laboratory Last Values Glucose (Clinic) 122 mg/dL (60-115) H 04/14/24 14:39 Assessment & Plan Assessment & Plan (1) Diabetes: Code(s): E11.9 - Type 2 diabetes mellitus without complications Category: Medical Qualifiers: Diabetes mellitus complication status: without complication Diabetes mellitus half-way insulin use: without half-way use Diabetes mellitus type: type 2 Qualified Code(s): E11.9 - Type 2 diabetes mellitus without complications Plan: Essentially has fixed her glucose with dietary modification. 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
[2024-04-14 14:35] VITALS: BP 122/66; PULSE 90; BMI 49.5
[2024-04-14 14:43] LABS: Glucose, Whole Blood 122 mg/dL (60-115)
== END 2024-04-14 14:53 | disposition home or self-care (01) ==
PROVIDERS: PCP Nurse Practitioner Family; Visit Provider Internal Medicine
DX: E11.9 Type 2 diabetes mellitus without complications (principal)

== ENCOUNTER → 2024-04-14 14:30 | Outpatient (BNVA) | payer OTHER, SELFPAY | PROVIDERS: PCP Nurse Practitioner Family; Visit Provider Internal Medicine | DX: E11.9 Type 2 diabetes mellitus without complications (principal) | CPT/HCPCS: 82947 ==

== ENCOUNTER 2024-04-28 14:25 | Outpatient (AMB) | payer OTHER, SELFPAY ==
[2024-04-28 14:29] VITALS: BMI 49.4
--- NOTE | 2024-04-28 14:29 | A.OFFVIS_ITS ---
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 Most recent R/O DVT was done at [facility] [place] in December 2023, no studies since. Pt is still taking eliquis. Pt states her leg is not hurting like it was previously. Pt states swelling has decreased and does have some dry skin, was getting some weeping previously. 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 Complaints include pain over varicosities, swelling of lower extremities, cramping, fatigue, and heaviness of the lower extremities. It has been affecting there daily activities including walking. It is noted more so in right leg. Of note she has a prior history of right congenital hip dysplasia. She has a history of uterine cancer in addition to 2 prior C-sections. Patient denies any previous venous surgery or injections. Patient reports a history of DVT after her D&C on 12/17/2023. She is being maintained on Eliquis Patient denies any history of phlebitis. Trial of compression includes - [id number] They now present for vascular evaluation regarding their varicose veins. 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[employer] Current occupational exposures/hazards: No Cognitive needs: No Hearing needs: No Vision needs: No Review of Systems Const Reports as per HPI ENT Reports no additional complaints Card Denies chest pain, Denies chest pain at rest and Denies chest pain with activity Resp Denies chest congestion and Denies cough GI Reports no additional complaints Musc Details: pain over varicosities, aching of lower extremities, swelling, cramping, heaviness and tiredness, itching Denies abnormal gait Skin/Breast Reports pruritus and Denies wounds Neuro Reports no additional complaints and Denies abnormal gait Psych Denies no additional complaints Physical Exam Vital Signs: BMI result Body Mass Index 49.4 Const General: cooperative, healthy appearing and comfortable Orientation/consciousness: oriented to person, oriented to place and oriented to time Neck Carotids: no bruits Chest Chest palpation & inspection: normal inspection of the chest and normal palpation of entire chest wall Resp Effort & Inspection: normal respiratory effort and able to speak in complete sentences Cardio Rate: regular rate Heart sounds: S1 normal heart sound present and S2 normal heart sound present Peripheral pulses: Peripheral pulses 2+ throughout GI Inspection: Yes normal to inspection Skin Other: +2 edema, large rope-like varicosities greater than 4 mm CEAP Classification C5 - evidence of healed ulceration in particular the right pretibial surface Ep - Etiology Primary As - superficial veins P - reflux General skin exam: dry skin Neuro General: oriented to person, oriented to place and oriented to time Extrem Right lower extremity: full ROM, normal capillary refill and edema Left lower extremity: full ROM, normal capillary refill and edema Psych Mental Status: mental status grossly normal Assessment & Plan Assessment & Plan (1) Varicose veins of right lower extremity with inflammation: Code(s): I83.11 - Varicose veins of right lower extremity with inflammation Category: Medical Plan: In short, the patient has evidence of venous insufficiency. I have discussed the pathophysiology with the patient. In addition I have provided informational material regarding venous disease to the patient. We have discussed conservative measures including compression, elevation, and exercise. I have also provided a handout regarding appropriate use of compression stockings and where to purchase good compression stockings as well. I have taken the liberty of ordering venous insufficiency testing with the patient. They will follow up with me after testing. The patient had an opportunity to ask questions regarding the treatment plan. All questions were answered. Imaging studies, laboratory studies and physical exam results were discussed and reviewed in detail. No major barriers to understanding were identified. The patient expressed understanding and agreement with the above treatment plan. The patient is aware they should contact our office by phone for worsening of the current condition or the appearance of new symptoms. Thank you for allowing me to participate in the vascular care of this patient. If you have any questions or concerns regarding the treatment for the above condition please do not hesitate to contact me. The office telephone contact is [phone]. This note is constructed using voice recognition software. While every e ffort has been made to ensure accuracy, quality technician fiberglass errors may have been included. Thank you for allowing me to participate in the care of your patient. Yours sincerely, Venancio Lu MD, FACS, R.P.V.I. Orders: Orders US venous duplex LE BI 1 Week I83.11 - Varicose veins of right lower extremity with inflammation Coding Level of Care Code New Pt Level 4 (10763) Diagnoses Varicose veins of right lower extremity with inflammation I83.11
== END 2024-04-28 15:18 | disposition home or self-care (01) ==
PROVIDERS: PCP Nurse Practitioner Family; Visit Provider Surgery Vascular Surgery
DX: I83.11 Varicose veins of right lower extremity with inflammation (principal)
CPT/HCPCS: 99204

== ENCOUNTER → 2024-04-28 14:25 | Outpatient (BNVA) | payer OTHER, SELFPAY | PROVIDERS: PCP Nurse Practitioner Family; Visit Provider Surgery Vascular Surgery ==

== ENCOUNTER 2024-05-13 08:34 | Outpatient (REF) | payer OTHER, SELFPAY ==
--- NOTE | ~2024-05-13 | US_ITS ---
EXAMINATION: US LOWER EXTREMITY VENOUS (REFLUX EXAM), BILATERAL CLINICAL INDICATION: Varicose veins COMPARISON: None. TECHNIQUE: Color flow triplex imaging and compression Doppler was performed to evaluate both the deep and the superficial systems bilaterally. To evaluate the superficial system, the examination was performed in the upright position. Color-flow Doppler ultrasound and compression ultrasound were utilized. In addition, maneuvers were utilized to demonstrate reflux. FINDINGS: RIGHT: 1. DEEP VENOUS ULTRASOUND OF THE RIGHT LOWER EXTREMITY: Common Femoral Vein: Compressible, normal respiratory variation and augmented flow. Popliteal Vein: Compressible, normal augmentation. Deep Venous Reflux: There is no evidence of reflux in the deep system in either the common femoral vein or the popliteal vein. There is no evidence of a Stoddard's cyst. 2. SUPERFICIAL ULTRASOUND WITH DOPPLER OF RIGHT LOWER EXTREMITY: RIGHT GREAT SAPHENOUS VEIN: Saphenofemoral Junction: 5 mm. No reflux. Proximal Thigh: 3 mm. No reflux. Mid Thigh: 4 mm. No reflux. Above Knee: 3 mm. 1688 ms reflux. Below Knee: 3 mm. 872 ms reflux. Mid Calf: 3 mm. 840 ms reflux. Ankle: 4 mm. 636 ms reflux. DUPLICATED GREAT SAPHENOUS VEIN: None RIGHT SMALL SAPHENOUS VEIN: Proximal: 2 mm. No reflux. Distal: 2 mm. No reflux. PERFORATORS: Mid thigh: 2 mm. No reflux Knee: 2 mm. No reflux LEFT: 1. DEEP VENOUS ULTRASOUND OF THE LEFT LOWER EXTREMITY: Common Femoral Vein: Compressible, normal respiratory variation and augmented flow. Popliteal Vein: Compressible, normal augmentation. Deep Venous Reflux: There is no evidence of reflux in the deep system in either the common femoral vein or the popliteal vein. There is no evidence of a Stoddard's cyst. 2. SUPERFICIAL ULTRASOUND WITH DOPPLER OF LEFT LOWER EXTREMITY: LEFT GREAT SAPHENOUS VEIN: Saphenofemoral Junction: 7 mm. No reflux. Proximal Thigh: 8 mm. No reflux. Mid Thigh: 6 mm. No reflux. Above Knee: 5 mm. No reflux. Below Knee: 3 mm. No reflux. Mid Calf: 3 mm. 1328 ms reflux. Ankle: 4 mm. 1188 ms reflux. DUPLICATED GREAT SAPHENOUS VEIN: None LEFT SMALL SAPHENOUS VEIN: Proximal: 2 mm. No reflux. Distal: 2 mm. No reflux. PERFORATORS: Mid small saphenous vein: 2 mm. No reflux Mid calf: 2 mm. No reflux US/US venous duplex LE BI IMPRESSION: Abnormal superficial venous reflux within bilateral great saphenous veins. Abnormal lower extremity venous reflux times: Superficial and deep calf veins: >500 ms Femoropopliteal veins: >1000 ms Perforating veins: >350 ms Labnatty N, John J, Kiara L, Rg AK, Justin SS, Emy Hitchcock M, Arlyn WH. Definition of venous reflux in lower-extremity veins.J Vasc Surg. 2003; [id number]. Electronically signed by: Modesto Vega DO 05/26/2024 06:43 PM EST
== END 2024-05-13 08:35 | disposition home or self-care (01) ==
LOC: HO.US 08:34
PROVIDERS: PCP Nurse Practitioner Family; Visit Provider Surgery Vascular Surgery
DX: I83.11 Varicose veins of right lower extremity with inflammation (principal)
CPT/HCPCS: 93970

== ENCOUNTER 2024-05-19 11:55 | Outpatient (AMB) | payer OTHER, SELFPAY ==
--- NOTE | 2024-05-19 11:59 | MHC.PC.OV ---
Vital Signs 05/19/24 12:10 05/19/24 12:36 Height 5 ft Weight 251 lb BMI 49.0 BP 130/90 H 126/84 Blood Pressure Location Lt brachial Lt brachial Position Sitting Left Lateral Respiration 16 Pulse 101 H Pulse Source Pulse Oximeter Temp 98.2 F Temp Source Oral Pulse Oximetry (%) 97 Oxygen Delivery Method Room Air Intake Visit Reasons: diabetes follow up a1c Intake Note: patient here to follow up Therapeutic Massage Technician Required: No Is last menstrual period known: No Post menopausal: No Patient : No Allergies Fish Containing Products Allergy (Severe, Verified 05/19/24 12:25) Anaphylaxis shellfish derived Allergy (Severe, Verified 05/19/24 12:25) Anaphylaxis amlodipine [From Norvasc] Allergy (Intermediate, Verified 05/19/24 12:25) Cough, Rash chlorthalidone Allergy (Intermediate, Verified 05/19/24 12:25) rash Seasonal Allergies Allergy (Intermediate, Verified 05/19/24 12:25) Watery Eye lisinopril Allergy (Verified 05/19/24 12:25) Rash,cough Medication List - Last Reconciled 05/19/24 by Sumanth Layne CNP albuterol sulfate 90 mcg/actuation 2 puffs inhalation Q4H PRN apixaban (Eliquis) 5 mg PO BID [id number]-[id number]-wvzlouke 250-250-65 mg (Excedrin Migraine) 1 tab PO Q4-6H PRN bisacodyl (Dulcolax (bisacodyl)) 20 mg (4 x 5 mg) PO ONCE 1 day carvedilol 6.25 mg PO BID cetirizine (Zyrtec) 30 mg PO DAILY cholecalciferol (vitamin D3) 125 mcg PO DAILY clonidine HCl 0.1 mg PO BID famotidine 20 mg PO BID furosemide 20 mg PO BID losartan 25 mg PO BID 90 days megestrol 80 mg PO BID polyethylene glycol 3350 (Miralax) 238 grams PO ONCE sennosides (Natural Senna Laxative) 17.2 mg (2 x 8.6 mg) PO BEDTIME Tobacco use date assessed: 05/19/24 Dental Screening Dental Screen Date: 05/19/24 Did you have a dental visit in the last 12 months?: Yes Did you have a dental problem in the last 6 months where you did not have access to dental care?: No Was dental information given to patient?: Patient has dentist HPI HPI Comments History of Present Illness Details 58-year-old female presents for diabetes follow-up She was diagnosed with type 2 diabetes 3 months ago. Her A1c was 9.0%. She was initially prescribed metformin 500 mg twice daily. She was referred to [facility] endocrinology as requested. She was seen by industrial relations worker twice. She admitted that she never took her metformin and was making lifestyle changes instead. Lantus 10 units daily was prescribed by endocrinology but the patient never took it. She was advised by endocrinology to follow-up as needed. She has lost 7 lb since her last visit 3 months ago. She checks her glucose frequently. Her fasting glucose is between 97-115 She right hip pain that has been going on for a while and worsened the past 3 months. She experiences the pain with siting, standing, and walking. No pain at rest. She describes the pain as achy, 3-8/10 on the pain scale. She notes occasional tingling and throbbing, no numbness. Her gait has been unsteady due to the pain. She has history of congenital hip dysphasia. She has been taking Tylenol without relief. She denies fall, injury, or trauma. 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 1. Little interest or pleasure in doing things: not at all 2. Feeling down, depressed, or hopeless: several days 3. Trouble falling or staying asleep, or sleeping too much: not at all 4. Feeling tired or having little energy: several days 5. Poor appetite or overeating: not at all 6. Feeling bad about yourself - or that you are a failure or have let yourself or your family down: several days 7. Trouble concentrating on things, such as reading the newspaper or watching television: not at all 8. Moving or speaking so slowly that other people could have noticed. Or the opposite - being so fidgety or restless that you have been moving around a lot more than usual: several days 9. Thoughts that you would be better off or of hurting yourself in some way: not at all Total score: 4 Depression Screening Interpretation: Negative Depression Screening Done: Yes Source: Developed by Drs. Salvatore Duran, Claudine Villanueva, Samuel Mistry and colleagues, with an educational alok from [employer]. Thrive Questionnaire Date Thrive assessed: 09/11/23 I am a: Parent/Caregiver What is your living situation today?: I have a steady place to live Within the past 12 months, did the food you bought not last and you didn't have the money to get more?: I choose not to answer this question Within the past 12 months, did you worry whether your food would run out before you got money to buy more?: I choose not to answer this question Do you have trouble paying for medicines?: No Do you have trouble getting transportation to medical appointments?: No Do you have trouble paying your heating and electricity bill?: Yes Do you have trouble taking care of your child, family member or friend?: No Do you have trouble with day-to-day activities such as bathing, preparing meals, shopping, managing finances, etc.?: No Are you currently unemployed and looking for a job?: No Are you interested in more education?: No Please select the resources that you would like help with: None Currently or been in a relationship where the following occur: I choose not to answer THRIVE Score: 1 AUDIT C Alcohol Use Questionnaire (AUDIT-C) 1. How often do you have a drink containing alcohol?: Never Total Score: 0 BETZY-7 AMB Questionnaire BETZY-7 Date BETZY - 7 assessed: 09/11/23 Feeling nervous, anxious, or on edge: 0 = Not at all Not being able to stop or control worryin = Several days Worrying too much about different things: 1 = Several days Trouble relaxin = Several days Being so restless that it is hard to sit still: 0 = Not at all Becoming easily annoyed or irritable: 0 = Not at all Feeling afraid as if something awful might happen: 0 = Not at all Total BETZY-7 score (0-4 normal; 5-9 mild; 10-14 moderate; 15-21 severe): 3 Source: Developed by Drs. Salvatore Duran, Claudine Villanueva, Samuel Mistry and colleagues, with an educational alok from [employer]. Review of Systems Const Details: Const Denies chills, Denies fatigue, Denies fever(s), Denies headache(s) and Denies weakness ENT Denies dizziness and Denies headache(s) Card Denies chest pain, Denies lightheadedness, Denies dyspnea and Denies other (Palpitations) Resp Denies cough, Denies dyspnea, Denies wheezing and Denies other ( shortness of breath) GI Denies abdominal pain, Denies melena, Denies hematochezia, Denies change in bowel habits, Denies dyspepsia and Denies nausea Denies hematuria and Denies dysuria Musc Reports as per HPI Skin/Breast Denies rash, Denies unusual bruising and Denies wounds Neuro Reports abnormal gait, Denies dizziness, Denies headache(s), Denies memory loss, Denies numbness, Denies Sensory deficit (Neuro), Denies tingling and Denies weakness Psych Denies anxiety, Denies depression, Denies memory loss Endo Denies cold intolerance, Denies fatigue, Denies heat intolerance, Denies polydipsia and Denies polyuria Aller/Immun Denies wheezing Physical exam (Primary Care) Vital Signs: Last Vital Signs Temp 98.2 F 05/19/24 12:10 Pulse 101 H 05/19/24 12:10 Resp 16 05/19/24 12:10 BP 130/90 H 05/19/24 12:10 Pulse Ox 97 05/19/24 12:10 Oxygen Delivery Method Room Air 05/19/24 12:10 BMI result Body Mass Index 49.0 Tobacco/Smoking Status: Tobacco use Status Tobacco use date assessed 05/19/24 05/19/24 12:13 Patient Tobacco Use Status Never used Tobacco 05/19/24 12:01 e-Cigarette/Vaping Use Never Used 05/19/24 12:01 PHQ-9: PHQ-9 Score PHQ-9: Total score 4 05/19/24 12:01 Depression Screening Interpretation: Negative Thrive Assessment: Date of Thrive Assessment Date Thrive assessed 09/11/23 05/19/24 12:01 Currently or been in a relationship where the following occur: I choose not to answer Const Other: General: no acute distress and well developed Nutritional Appearance: well nourished Orientation/consciousness: patient oriented x3 HENMT Head: Yes normocephalic and Yes atraumatic Eyes General: appearance normal, both eyes and all related structures Pupils: Equal, round and reactive pupils present EOM: EOMs intact bilaterally Resp Effort & Inspection: normal respiratory effort Auscultation: clear to auscultation bilaterally Cardio Rate: regular rate Rhythm: regular rhythm Heart sounds: S1 normal heart sound present, S2 normal heart sound present, no gallops, no murmurs and no rubs GI Palpation (GI): No Abdominal aortic bruit present, Soft to palpation, nontender, No hepatosplenomegaly present and No Rebound tenderness present Auscultation: normal bowel sounds General: Yes no CVA tenderness Back/Spine/Pelvis Back: no CVA tenderness Cervical Spine: cervical ROM normal and No Cervical spine tenderness Thoracic/Lumbar Spine: thoraco-lumbar ROM normal, No pain with thoraco-lumbar ROM, No thoracic spinal tenderness and No lumbar spinal tenderness Extrem General: Yes normal to inspection, No edema and No calf tenderness. Negative straight leg raise. Gait is slightly unsteady. No overt injury or trauma Skin General: warm and dry. Normal skin color. Normal skin turgor Neuro General: patient oriented x3, gait slightly unsteady and no focal neuro deficit Cranial nerves: Yes Equal, round and reactive pupils present Cognition (Neuro): normal cognition Gait exam (Neuro): Normal gait present Sensory Exam: No Sensory deficit (Neuro) Psych Appearance: grossly normal Affect: normal affect Attitude: cooperative Thought process: Normal thought process present Results AMB Hemoglobin A1c AMB Hemoglobin A1c 7.5 % Last Edit by Merry Ge MA on 05/19/24 13:24 Coding Level of Care Code Est Pt Level 4 (61145) Complex EM visit Add On G2211 Diagnoses New onset type 2 diabetes mellitus E11.9 HTN, goal below 130/80 I10 Chronic right hip pain M25.551; G89.29 Assessment & Plan Assessment & Plan (1) New onset type 2 diabetes mellitus: Code(s): E11.9 - Type 2 diabetes mellitus without complications Category: Medical Plan: A1c today is 7.5%, slightly above goal of less than 7.0%. Previous A1c was 9.0% Declines pharmacotherapy. She has been making healthy lifestyle changes Healthy diet and routine exercise encouraged Follow-up in 3 months or sooner with symptoms or concerns Verbalized understanding and agreed with the treatment plan (2) HTN, goal below 130/80: Code(s): I10 - Essential (primary) hypertension Category: Medical Plan: Resting blood pressure is 126/84, slightly above goal of less than 130/80 Continue current treatment regimen Low-sodium diet encouraged Follow-up in 3 months Verbalized understanding and agreed with the treatment plan (3) Chronic right hip pain: Code(s): M25.551 - Pain in right hip; G89.29 - Other chronic pain Category: Medical Plan: Reports chronic right hip pain that has progressively worsened in the past 3 months. She experiences the pain with siting, standing, and walking. The pain is refractory to Tylenol Negative straight leg raise. Gait is slightly unsteady. No overt injury or trauma Likely arthritis Will trial tramadol 50 mg twice daily as needed. Advised to take as prescribed. Instructed on the risks, benefits, and potential adverse reactions of the medication X-ray of the right hip and pelvis ordered. Will review results and make changes as needed Follow-up with worsening or new symptoms Verbalized understanding and agreed with the treatment plan Orders: Orders AMB Hemoglobin A1c Today Z13.9 - Encounter for screening, unspecified XR hip RT w PEL1V Today G89.29 - Other chronic pain, M25.551 - Pain in right hip Medications: New tramadol 50 mg PO BID PRN 28 tabs 0RF pain
[2024-05-19 12:10] VITALS: BP 130/90; PULSE 101; RESP 16; TEMP 36.8; O2SAT 97; BMI 49.0
[2024-05-19 12:36] VITALS: BP 126/84
== END 2024-05-19 12:51 | disposition home or self-care (01) ==
LOC: HO.HMCFM 11:55
PROVIDERS: PCP Nurse Practitioner Family; Visit Provider Nurse Practitioner Family
DX: E11.9 Type 2 diabetes mellitus without complications (principal); I10 Essential (primary) hypertension; M25.551 Pain in right hip; G89.29 Other chronic pain; Z13.9 Encounter for screening, unspecified

== ENCOUNTER → 2024-05-19 11:55 | Outpatient (BNVA) | payer OTHER, SELFPAY | PROVIDERS: PCP Nurse Practitioner Family; Visit Provider Nurse Practitioner Family | DX: E11.9 Type 2 diabetes mellitus without complications (principal); I10 Essential (primary) hypertension; G89.29 Other chronic pain; M25.551 Pain in right hip | CPT/HCPCS: 83036; 96127 ==

== ENCOUNTER 2024-05-24 14:57 | Outpatient (AMB) | payer OTHER, SELFPAY ==
--- NOTE | 2024-05-24 15:01 | MHC.OFFVIS ---
Vital Signs 05/24/24 15:03 Height 5 ft Weight 251 lb BMI 49.0 BP 126/72 Blood Pressure Location Lt brachial Position Sitting Intake Visit Reasons: follow up s/p 05/13/24 Intake Note: Olga is a 59 year old female who presents to the office today for a follow up s/p 05/13/24. Pt states she has tried wearing compression socks but states she believes she is allergic to the elastic in the socks which causes irritation to her skin. Allergies Fish Containing Products Allergy (Severe, Verified 05/24/24 15:05) Anaphylaxis shellfish derived Allergy (Severe, Verified 05/24/24 15:05) Anaphylaxis amlodipine [From Norvasc] Allergy (Intermediate, Verified 05/24/24 15:05) Cough, Rash chlorthalidone Allergy (Intermediate, Verified 05/24/24 15:05) rash Seasonal Allergies Allergy (Intermediate, Verified 05/24/24 15:05) Watery Eye lisinopril Allergy (Verified 05/24/24 15:05) Rash,cough elastic Allergy (Intermediate, Uncoded 05/24/24 15:05) welts HPI HPI follow up s/p 05/13/24: Details: Very pleasant 59-year-old female presents with follow-up for swollen lower extremities. She has a prior history of a DVT diagnosed on 12/17/2023 after D&C. At the current time she is persistently swollen legs. She has had a trial of compression with minimal relief. She now presents for follow-up with venous insufficiency testing. Also of note she has a prior history of an adhesive allergy. 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[employer] Current occupational exposures/hazards: No Cognitive needs: No Hearing needs: No Vision needs: No Review of Systems Const Reports as per HPI ENT Reports no additional complaints Card Denies chest pain, Denies chest pain at rest and Denies chest pain with activity Resp Denies chest congestion and Denies cough GI Reports no additional complaints Musc Details: pain over varicosities, aching of lower extremities, swelling, cramping, heaviness and tiredness, itching Denies abnormal gait Skin/Breast Reports pruritus and Denies wounds Neuro Reports no additional complaints and Denies abnormal gait Psych Denies no additional complaints Physical Exam Vital Signs: Last Vital Signs BP 126/72 05/24/24 15:03 BMI result Body Mass Index 49.0 Const General: cooperative, healthy appearing and comfortable Orientation/consciousness: oriented to person, oriented to place and oriented to time Neck Carotids: no bruits Chest Chest palpation & inspection: normal inspection of the chest and normal palpation of entire chest wall Resp Effort & Inspection: normal respiratory effort and able to speak in complete sentences Cardio Rate: regular rate Heart sounds: S1 normal heart sound present and S2 normal heart sound present Peripheral pulses: Peripheral pulses 2+ throughout GI Inspection: Yes normal to inspection Skin Other: +2 edema, CEAP Classification C4 - skin color changes Ep - Etiology Primary As - superficial veins P - reflux General skin exam: dry skin Neuro General: oriented to person, oriented to place and oriented to time Extrem Right lower extremity: full ROM, normal capillary refill and edema Left lower extremity: full ROM, normal capillary refill and edema Psych Mental Status: mental status grossly normal Assessment & Plan Assessment & Plan (1) Varicose veins of right lower extremity with inflammation: Code(s): I83.11 - Varicose veins of right lower extremity with inflammation Category: Medical Plan: This patient has varicose veins with inflammation. They continue to be a source of discomfort for the patient. The patient has tried conservative treatment with compression, leg elevation and exercise program for over 3 months time. They have been compliant with all treatment. This has provided minimal relief for the patient. I do not anticipate this course of treatment will alter the underlying etiology. The patient has been scheduled for lower extremity venous treatment inclusive of --- right great saphenous vein radiofrequency ablation. Risks, benefits, and complications of this procedure has been discussed in detail with the patient including but not limited to bleeding, infection, and the development of a DVT. The patient has demonstrated a clear understanding and has consented. We will schedule the patient as soon as possible. Thank you for allowing us to participate in this patient's care. If there are any questions or concerns please do not hesitate to contact us. Coding Level of Care Code Est Pt Level 4 (37541) Diagnoses Varicose veins of right lower extremity with inflammation I83.11
[2024-05-24 15:03] VITALS: BP 126/72; BMI 49.0
== END 2024-05-24 15:21 | disposition home or self-care (01) ==
PROVIDERS: PCP Nurse Practitioner Family; Visit Provider Surgery Vascular Surgery
DX: I83.11 Varicose veins of right lower extremity with inflammation (principal)
CPT/HCPCS: 99214

== ENCOUNTER → 2024-05-24 14:57 | Outpatient (BNVA) | payer OTHER, SELFPAY | PROVIDERS: PCP Nurse Practitioner Family; Visit Provider Surgery Vascular Surgery ==

== ENCOUNTER 2024-06-07 11:23 | Day surgery (SDC) | payer OTHER, SELFPAY ==
[2024-06-03 14:56] VITALS: BMI 49.0
[2024-06-07 13:10] VITALS: BMI 48.4
[2024-06-07 13:19] VITALS: BP 147/85; PULSE 89; RESP 16; TEMP 36.3; O2SAT 98
--- NOTE | 2024-06-07 14:22 | MHC.SHP ---
Pre-Procedural Eval Section A - 24 Hr Update-Section A only Date of Service: 06/07/24 Section B - Complete if H&P > 30 days Chief Complaint: Other fecal abnormalities Relevant Family History (Specify if Yes): No Relevant Social History: None Present Medications: see Short Stay Collaborative assessment Medical History: Significant History (Congenital dysplasia of hips, bilateral Gallbladder calculus Fibroids delivery delivered) History of Previous Operations: Relevant previous surgery/procedure and date(s) (History of hysteroscopy) Allergies: Allergies Allergy/AdvReac Type Severity Reaction Status Date / Time Fish Containing Products Allergy Severe Anaphylaxis Verified 06/07/24 13:35 shellfish derived Allergy Severe Anaphylaxis Verified 06/07/24 13:35 amlodipine [From Norvasc] Allergy Intermediate Cough, Rash Verified 06/07/24 13:35 chlorthalidone Allergy Intermediate rash Verified 06/07/24 13:35 Seasonal Allergies Allergy Intermediate Watery Eye Verified 06/07/24 13:35 lisinopril Allergy Rash,cough Verified 06/07/24 13:35 elastic Allergy Intermediate welts Uncoded 06/07/24 13:35 Review of Systems Sugical H&P ROS: Negative: Constitution, Cardiovascular, Respiratory, Neurological, Psychiatric, Hem-Onc, Allergic/Immunologic, Gastrointestinal, Genitourinary, Musculoskeletal, Integumentary, Endocrine and Eyes/Ears/Nose/Throat Exam Surgical H&P Exam: Normal: HEENT, Normal: Heart, Normal: Lungs, Normal: Extremities, Normal: Abdomen, Normal: Skin and Normal: Neurological Plan Diagnosis/Plan: Unchanged I have reviewed the history and physical and performed a pertinent physical examination on my patient. No changes have occurred unless specified. Time Spent With Patient Time: Total time managing care of this patient today ____ minutes.
--- NOTE | 2024-06-07 14:52 | HO.OPN-COLON ---
Colonoscopy Operative Note Operative Note Date of Service: 06/07/24 Narrative: Operative Information Procedure Description: Colonoscopy Indication: screening Anesthesia: MAC COLONOSCOPY Instrument: Olympus variable stiffness pediatric scope 190L Colonoscopy Monitoring: Vital signs and clinical assessment, continuous EKG monitoring, Pulse oximetry, Carbon Dioxide monitoring and blood pressure monitoring were done throughout the procedure. Colon withdrawal time was 9 minutes. Procedure: The patient was placed in the left lateral decubitis position and pre-procedure medications were administered. After a digital rectal examination of the ano-rectum, the video colonoscope was inserted into the rectum and advanced through the colon to the cecum/TI. The colonoscope was slowly withdrawn in a retrograde panoramic fashion and the colon mucosa was carefully examined including a retroflexed view of the rectum. Findings and interventions are described below. Procedure Difficulty: easy Findings: Terminal Ileum-normal Cecum:normal Ascending Colon: normal Transverse Colon -normal Descending Colon:normal Sigmoid Colon: 4-5 mm sessile polyp removed with cold forceps, 8-9 mm sessile polyp removed with cold snare, mild diverticulosis Rectum: Retroflexion with small internal hemorrhoids seen, grade I Anorectum - normal Intervention: cold forceps, cold snare Colon preparation: Carbon Bowel Preparation Scale Right colon; 1-2 Transverse colon: 2 Left colon; 1-2 (0 = Unprepared colon segment with mucosa not seen due to solid stool that cannot be cleared. 1 = Portion of mucosa of the colon segment seen, but other areas of the colon segment not well seen due to staining, residual stool and/or opaque liquid. 2 = Minor amount of residual staining, small fragments of stool and/or opaque liquid, but mucosa of colon segment seen well. 3 = Entire mucosa of colon segment seen well with no residual staining, small fragments of stool or opaque liquid) Impression and Post Procedure Diagnosis: diverticulosis colon polyps internal hemorrhoids Plan: High fiber diet leaflet Avoid straining at stool, epsom salts and sitz bath, anusol supps or cream Repeat Colonoscopy in 5 years due to polyps and some areas with fair prep or earlier if clinically indicated Above findings were reviewed with the patient and relevant handouts were provided if indicated.
[2024-06-07 15:01] VITALS: BP 113/59; PULSE 95; RESP 16; TEMP 37.3; O2SAT 97
[2024-06-07 15:16] VITALS: BP 133/87; PULSE 90; RESP 18; TEMP 36.7; O2SAT 97
--- NOTE | 2024-06-07 17:09 | HO.ANESPROP2 ---
HPI - Anesthesia Eval Consult details Narrative: 59 F for colonoscopy PMFSH Active Problems Active Problems: All Active Problems Varicose veins of right lower extremity with inflammation (Acute) New onset type 2 diabetes mellitus (Acute) Diabetes (Acute) Hospital discharge follow-up (Acute) Right leg DVT (Acute) Kidney disease (Acute) Morbid obesity with BMI of 50.0-59.9, adult (Acute) Vaccine counseling (Acute) Normal physical examination, routine (Acute) Vitamin D deficiency (Acute) Elevated fasting glucose (Acute) Chronic pain of right knee (Acute) Chronic right hip pain (Acute) Laboratory tests ordered as part of a complete physical exam (CPE) (Acute) Swelling of both ankles (Acute) Dry skin (Acute) Colon cancer screening (Acute) Breast cancer screening (Acute) Uterine cancer (Acute) HTN, goal below 130/80 (Acute) Sleep apnea (Acute) Hypertension, essential, benign (Acute) Elevated blood pressure reading (Acute) Morbid obesity due to excess calories (Acute) Migraine headache without aura (Acute) Asthma, mild intermittent, well-controlled (Acute) Seasonal allergies (Acute) Idiopathic tzirq-qwmlv-ynrvwgkth (Acute) Rash and nonspecific skin eruption (Acute) Past Medical History Medical History DVT (deep venous thrombosis) Sleep apnea Idiopathic uyqic-trlzl-hmohrztxr Asthma Migraines Chronic renal insufficiency Uterine cancer Diabetes HTN (hypertension) Congenital dysplasia of hips, bilateral Gallbladder calculus Fibroids Family History Family history of problems with anesthesia: No Surgical History Surgical History Hx of section History of D&C History of hysteroscopy History of Problems with Anesthesia: No Social History Social History Housing: House Alcohol intake: current Alcohol intake frequency: holidays/special occasions only Alcohol type: other Patient Tobacco Use Status: Never used Tobacco e-Cigarette/Vaping Use: Never Used Second Hand Smoke Exposure: No service: No Current occupational status: employed 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] Allergy Intermediate Cough, Rash Verified 06/07/24 13:35 chlorthalidone Allergy Intermediate rash Verified 06/07/24 13:35 Seasonal Allergies Allergy Intermediate Watery Eye Verified 06/07/24 13:35 lisinopril Allergy Rash,cough Verified 06/07/24 13:35 elastic Allergy Intermediate welts Uncoded 06/07/24 13:35 Home Medications ?Medication ?Instructions ?Recorded ?Confirmed ?Last Taken ?Type albuterol sulfate 90 mcg/actuation 2 puff inhalation Q4H PRN 07/10/20 06/03/24 Unknown History aerosol inhaler Shortness Of Breath Or Wheezing cetirizine 10 mg tablet (Zyrtec) 30 mg PO DAILY 07/10/20 06/03/24 06/07/24 09:00 History famotidine 20 mg tablet 20 mg PO BID 07/10/20 06/03/24 06/07/24 09:00 History furosemide 20 mg tablet 20 mg PO BID 10/02/22 06/03/24 Unknown History megestrol 40 mg tablet 80 mg PO BID 10/02/22 06/03/24 Unknown History cholecalciferol (vitamin D3) 125 125 mcg PO DAILY 07/02/23 06/03/24 Unknown History mcg (5,000 unit) capsule clonidine HCl 0.1 mg tablet 0.1 mg PO BID 07/02/23 06/03/24 06/07/24 09:00 History apixaban 5 mg tablet (Eliquis) 5 mg PO BID 02/12/24 06/03/24 06/02/24 History carvedilol 6.25 mg tablet 6.25 mg PO BID 05/19/24 06/03/24 06/07/24 09:00 History Exam Height,Weight and Vital Signs: Height 5 ft Weight 248 lb Last Vital Signs Temp 98.1 F 06/07/24 15:16 Pulse 90 06/07/24 15:16 Resp 18 06/07/24 15:16 BP 133/87 06/07/24 15:16 Pulse Ox 97 06/07/24 15:16 O2 Del Method Room Air 06/07/24 15:16 Airway Mallampati Class: II TM Dist: >3cm Neck ROM: Full Loose/Missing/Broken Teeth: Yes Assessment and Plan Assessment Anesthesia Assessment: Anesthesia Plan Discussed and Chart Reviewed Final Anesthetic Review Family History of Problems with Anesthesia: No History of Problems with Anesthesia: No NPO: Yes ASA Class: III Final Preanesthetic Review: No Changes in Pt Med Stat, Meds/Allgs Chart Reviewed, Consent Obtained/Reviewed and Anes Risks/Benef Reviewed Patient Risk: Intermediate Procedure Risk: Low Anesthetic Plan Anesthetic Plan: MAC: Disposition: Standard PACU
== END 2024-06-07 15:22 | disposition home or self-care (01) ==
PROVIDERS: PCP Nurse Practitioner Family; Visit Provider Internal Medicine Gastroenterology
PROC: 0DJD8ZZ Inspection of Lower Intestinal Tract, Via Natural or Artificial Opening Endoscopic (ICD-10-PCS; CPT 45378; principal; 2024-06-07 13:20)
DX: R19.5 Other fecal abnormalities (principal); Q85.9 Phakomatosis, unspecified; K57.30 Diverticulosis of large intestine without perforation or abscess without bleeding; K64.0 First degree hemorrhoids; E11.9 Type 2 diabetes mellitus without complications; I10 Essential (primary) hypertension; K58.9 Irritable bowel syndrome, unspecified; J45.909 Unspecified asthma, uncomplicated; G47.33 Obstructive sleep apnea (adult) (pediatric); Z85.42 Personal history of malignant neoplasm of other parts of uterus; Z86.718 Personal history of other venous thrombosis and embolism; Z79.899 Other long term (current) drug therapy
CPT/HCPCS: 45385; 45380; 88305; 88341; 88342; J2003; J2704

== ENCOUNTER → 2024-06-07 11:23 | Outpatient (BNV) | payer OTHER, SELFPAY | PROVIDERS: PCP Nurse Practitioner Family; Visit Provider Internal Medicine Gastroenterology | DX: Z12.11 Encounter for screening for malignant neoplasm of colon (principal); D12.5 Benign neoplasm of sigmoid colon; K57.30 Diverticulosis of large intestine without perforation or abscess without bleeding; K64.0 First degree hemorrhoids | CPT/HCPCS: 45380; 45385 ==

== ENCOUNTER 2024-06-15 14:52 | Outpatient (REF) | payer OTHER, SELFPAY ==
--- NOTE | ~2024-06-15 | XR_ITS ---
EXAMINATION: XR HIP, RIGHT CLINICAL INFORMATION: Right hip pain. COMPARISON: None available. TECHNIQUE: AP view of the pelvis as well as AP and frog-leg lateral views of the right hip. FINDINGS: Severe right hip joint space narrowing, most prominent centrally. Bony remodeling with subchondral sclerosis and subchondral cystic change. Prominent marginal osteophytes. Right femoral neck buttressing. Minimal left hip joint space narrowing with tiny marginal osteophytes. No osseous erosion. No evidence of femoral head avascular necrosis. Irregular calcification within the right pelvis measuring up to 1.9 cm which may represent a bone island within the right iliac versus a soft tissue calcification. XR/XR hip RT w PEL1V IMPRESSION: 1. Severe right hip osteoarthritis with bony remodeling and femoral neck buttressing. 2. Mild left hip osteoarthritis. 3. Irregular calcification within the right pelvis measuring up to 1.9 cm which may represent a bone island versus a soft tissue calcification. Electronically signed by: Shady Ayala MD 06/16/2024 01:05 PM [facility]
== END 2024-06-15 14:53 | disposition home or self-care (01) ==
LOC: HO.HMGCX 14:52
PROVIDERS: PCP Nurse Practitioner Family; Visit Provider Nurse Practitioner Family
DX: M25.551 Pain in right hip (principal); G89.29 Other chronic pain
CPT/HCPCS: 73502

== ENCOUNTER 2024-08-25 09:49 | Outpatient (AMB) | payer OTHER, SELFPAY ==
--- NOTE | 2024-08-25 09:54 | MHC.PC.OV ---
Vital Signs 08/25/24 09:57 Height 5 ft Weight 253 lb 2 oz BMI 49.4 BP 126/74 Blood Pressure Location Rt brachial Position Sitting Respiration 16 Pulse 86 Pulse Source Pulse Oximeter Pulse Oximetry (%) 92 Oxygen Delivery Method Room Air Intake Visit Reasons: 3 mos DM, HTN Intake Note: Three month follow up hyn and diabetes [facility] Stitcher Required: No Allergies Fish Containing Products Allergy (Severe, Verified 08/25/24 10:05) Anaphylaxis shellfish derived Allergy (Severe, Verified 08/25/24 10:05) Anaphylaxis amlodipine [From Norvasc] Allergy (Intermediate, Verified 08/25/24 10:05) Cough, Rash chlorthalidone Allergy (Intermediate, Verified 08/25/24 10:05) rash Seasonal Allergies Allergy (Intermediate, Verified 08/25/24 10:05) Watery Eye lisinopril Allergy (Verified 08/25/24 10:05) Rash,cough elastic Allergy (Intermediate, Uncoded 08/25/24 10:05) wel Medication List - Last Reconciled 08/25/24 by Sumanth Layne CNP albuterol sulfate 90 mcg/actuation 2 puffs inhalation Q4H PRN apixaban (Eliquis) 5 mg PO BID carvedilol 6.25 mg PO BID cetirizine (Zyrtec) 30 mg PO DAILY cholecalciferol (vitamin D3) 125 mcg PO DAILY clonidine HCl 0.1 mg PO BID famotidine 20 mg PO BID furosemide 20 mg PO BID losartan 25 mg PO BID 90 days megestrol 80 mg PO BID sennosides (Natural Senna Laxative) 17.2 mg (2 x 8.6 mg) PO BEDTIME tramadol 50 mg PO BID PRN Tobacco use date assessed: 05/19/24 Dental Screening Dental Screen Date: 05/19/24 HPI HPI Comments History of Present Illness Details 59-year-old female presents for hypertension and diabetes follow-up. She admits to taking her medications as prescribed without adverse reactions. Metformin 500 mg twice a day was prescribed upon diagnosis of diabetes. However, she did not take the medication. She was making healthy dietary choices until 2 months ago when she lost her job and has been making on healthy dietary choices due to stress. She was briefly followed by [facility] endocrinology and was advised to follow up as needed. She offers no complaints and denies acute symptoms at this time. She inquired about coming off Eliquis. She developed DVT 2 weeks after D&C procedure by [facility] in 12/2023 and was prescribed Eliquis 5 mg twice daily by [facility]. She has an appointment with oncologist next month and will inquire about coming off Eliquis. She is followed by [facility] vascular surgery. X-ray of the right hip/pelvis in 06/2024 revealed the following: IMPRESSION: 1. Severe right hip osteoarthritis with bony remodeling and femoral neck buttressing. 2. Mild left hip osteoarthritis. 3. Irregular calcification within the right pelvis measuring up to 1.9 cm which may represent a bone island versus a soft tissue calcification. Electronically signed by: Shady Ayala MD 06/16/2024 01:05 PM [facility] She has been taking tramadol as needed for pain. She requests PT referral. [facility] Medical History DVT (deep venous thrombosis) Sleep apnea Idiopathic graeb-gwikf-vbdfhpkcs Asthma Migraines Chronic renal insufficiency Uterine cancer Diabetes HTN (hypertension) Congenital dysplasia of hips, bilateral Gallbladder calculus Fibroids Surgical History Hx of section History of D&C History of hysteroscopy Social History Housing: House Alcohol intake: current Alcohol intake frequency: holidays/special occasions only Alcohol type: other Patient Tobacco Use Status: Never used Tobacco e-Cigarette/Vaping Use: Never Used Second Hand Smoke Exposure: No service: No Current occupational status: employed 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 1. Little interest or pleasure in doing things: not at all 2. Feeling down, depressed, or hopeless: not at all 3. Trouble falling or staying asleep, or sleeping too much: not at all 4. Feeling tired or having little energy: not at all 5. Poor appetite or overeating: not at all 6. Feeling bad about yourself - or that you are a failure or have let yourself or your family down: not at all 7. Trouble concentrating on things, such as reading the newspaper or watching television: not at all 8. Moving or speaking so slowly that other people could have noticed. Or the opposite - being so fidgety or restless that you have been moving around a lot more than usual: not at all 9. Thoughts that you would be better off or of hurting yourself in some way: not at all Total score: 0 Depression Screening Interpretation: Negative Depression Screening Done: Yes 17694 - PHQ-9 Billing: Yes Source: Developed by Drs. Salvatore Duran, Claudine Villanueva, Samuel Mistry and colleagues, with an educational alok from [employer]. Thrive Questionnaire Date Thrive assessed: 05/19/24 BETZY-7 AMB Questionnaire BETZY-7 Date BETZY - 7 assessed: 08/25/24 Feeling nervous, anxious, or on edge: 0 = Not at all Not being able to stop or control worryin = Not at all Worrying too much about different things: 0 = Not at all Trouble relaxin = Not at all Being so restless that it is hard to sit still: 0 = Not at all Becoming easily annoyed or irritable: 0 = Not at all Feeling afraid as if something awful might happen: 0 = Not at all Total BETZY-7 score (0-4 normal; 5-9 mild; 10-14 moderate; 15-21 severe): 0 Source: Developed by Drs. Salvatore Duran, Samuel Walker and colleagues, with an educational alok from [employer]. BETZY-7 Assessment Billing BETZY-7 Assessment Tool: BETZY-7 Assessment 33016 Review of Systems Const Details: Const Denies chills, Denies fatigue, Denies fever(s), Denies headache(s) and Denies weakness ENT Denies dizziness and Denies headache(s) Card Denies chest pain, Denies lightheadedness, Denies dyspnea and Denies other (Palpitations) Resp Denies cough, Denies dyspnea, Denies wheezing and Denies other ( shortness of breath) GI Denies abdominal pain, Denies melena, Denies hematochezia, Denies change in bowel habits, Denies dyspepsia and Denies nausea Denies hematuria and Denies dysuria Musc Denies abnormal gait, Denies myalgias, Denies arthralgias, Denies numbness and Denies tingling Skin/Breast Denies rash, Denies unusual bruising and Denies wounds Neuro Denies abnormal gait, Denies dizziness, Denies headache(s), Denies memory loss, Denies numbness, Denies Sensory deficit (Neuro), Denies tingling and Denies weakness Psych Denies anxiety, Denies depression, Denies memory loss Endo Denies cold intolerance, Denies fatigue, Denies heat intolerance, Denies polydipsia and Denies polyuria Aller/Immun Denies wheezing Physical exam (Primary Care) Tobacco/Smoking Status: Tobacco use Status Tobacco use date assessed 05/19/24 08/25/24 09:56 Patient Tobacco Use Status Never used Tobacco 08/25/24 09:56 e-Cigarette/Vaping Use Never Used 08/25/24 09:56 PHQ-9: PHQ-9 Score PHQ-9: Total score 0 08/25/24 09:56 Depression Screening Interpretation: Negative Thrive Assessment: Date of Thrive Assessment Date Thrive assessed 05/19/24 08/25/24 09:56 Const Other: General: no acute distress and well developed Nutritional Appearance: well nourished Orientation/consciousness: patient oriented x3 HENMT Head: Yes normocephalic and Yes atraumatic Eyes General: appearance normal, both eyes and all related structures Pupils: Equal, round and reactive pupils present EOM: EOMs intact bilaterally Resp Effort & Inspection: normal respiratory effort Auscultation: clear to auscultation bilaterally Cardio Rate: regular rate Rhythm: regular rhythm Heart sounds: S1 normal heart sound present, S2 normal heart sound present, no gallops, no murmurs and no rubs GI Palpation (GI): No Abdominal aortic bruit present, Soft to palpation, nontender, No hepatosplenomegaly present and No Rebound tenderness present Auscultation: normal bowel sounds General: Yes no CVA tenderness Back/Spine/Pelvis Back: no CVA tenderness Cervical Spine: cervical ROM normal and No Cervical spine tenderness Thoracic/Lumbar Spine: thoraco-lumbar ROM normal, No pain with thoraco-lumbar ROM, No thoracic spinal tenderness and No lumbar spinal tenderness Extrem General: Yes normal to inspection, No edema and No calf tenderness Skin General: warm and dry. Normal skin color. Normal skin turgor Neuro General: patient oriented x3, gait normal and no focal neuro deficit Cranial nerves: Yes Equal, round and reactive pupils present Cognition (Neuro): normal cognition Gait exam (Neuro): Normal gait present Sensory Exam: No Sensory deficit (Neuro) Psych Appearance: grossly normal Affect: normal affect Attitude: cooperative Thought process: Normal thought process present Results AMB Hemoglobin A1c AMB Hemoglobin A1c 7.2 % Last Edit by Kim Morales CMA on 08/25/24 10:37 Coding Level of Care Code Est Pt Level 4 (71335) Diagnoses HTN, goal below 130/80 I10 Type 2 diabetes mellitus without complication, without long-term current use of insulin E11.9 Diabetes mellitus complication status: without complication Diabetes mellitus custodial insulin use: without buttermaker continuous churn use Diabetes mellitus type: type 2 Osteoarthritis of both hips M16.0 Stress F43.9 Additional Codes PHQ-9 - 75468 - PHQ-9 Billing: Yes ([id number]) BETZY-7 Assessment Billing - BETZY-7 Assessment Tool: BETZY-7 Assessment 44805 ([id number]) Assessment & Plan Assessment & Plan (1) HTN, goal below 130/80: Code(s): I10 - Essential (primary) hypertension Category: Medical Plan: Blood pressure is 126/74, within goal of less than 130/80. Continue current treatment regimen. Will continue to monitor. Follow-up in a month for an extended physical exam or sooner with symptoms or concerns. Verbalized understanding and agreed with treatment plan. (2) Diabetes: Code(s): E11.9 - Type 2 diabetes mellitus without complications Category: Medical Qualifiers: Diabetes mellitus complication status: without complication Diabetes mellitus buttermaker continuous churn insulin use: without custodial use Diabetes mellitus type: type 2 Qualified Code(s): E11.9 - Type 2 diabetes mellitus without complications Plan: A1c today is 7.2%, slightly above goal of less than 7.0%. Previous A1c was 7.5%. Encouraged to make healthy dietary choices. ADA diet and routine exercise encouraged. She recently bought a treadmill will start exercising. Will check A1c in 3 months. Verbalized understanding and agreed with treatment plan. (3) Osteoarthritis of both hips: Code(s): M16.0 - Bilateral primary osteoarthritis of hip Category: Medical Plan: Tramadol as prescribed. Warm/cool compresses encouraged. Referred to [facility] physical therapy. Follow-up with worsening or new symptoms. Verbalized understanding and agreed with treatment plan. (4) Stress: Code(s): F43.9 - Reaction to severe stress, unspecified Category: Medical Plan: Stress related to loss of employment 2 months ago. Healthy diet and routine exercise encouraged. Follow-up with worsening or new symptoms. Verbalized understanding and agreed with treatment plan. Orders: Orders AMB Hemoglobin A1c Today Z13.9 - Encounter for screening, unspecified PT Evaluation and Treatment Today M16.0 - Bilateral primary osteoarthritis of hip
[2024-08-25 09:57] VITALS: BP 126/74; PULSE 86; RESP 16; O2SAT 92; BMI 49.4
--- OUTSIDE RECORDS SUMMARY | 2024-08-25 10:20 | XMS_ITS | Clinical Summary ---
Author Organization [facility] Address [address] [place] [address] Care Team Providers Care Water Quality Assistant Name Role Phone Sumanth Layne Primary Care Provider Allergies Active Allergy Reactions Criticality Noted Date Comments Amlodipine Rash,Swelling High 01/08/2021 Chlorthalidone Rash Low 01/08/2021 Lisinopril Cough,Rash Low 01/08/2021 Shellfish Derived Anaphylaxis High 04/05/2024 Medications acetaminophen (TYLENOL) 650 mg 8 hr tablet 650 mg. Activ e albuterol (PROAIR HFA,VENTOLIN HFA) 90 mcg inhaler Inhale 2 puffs by mouth every 6 hours as needed. Active Eliquis 5 mg tablet 5 mg. Active budesonide (RINOCORT AQUA) 32 mcg/actuation nasal spray Administer 1 spray into affected nostril(s). 4 Active carvediloL (COREG) 12.5 mg tablet Take 12.5 mg by mouth. Active cholecalciferol , vitamin D3, 125 mcg (5,000 unit) capsule Take 5,000 Units by mouth. 4 Active cloNIDine (CATAPRES) 0.1 mg tablet Take 0.1 mg by mouth. Active famotidine (PEPCID) 20 mg tablet Take 20 mg by mouth 2 times a day. Active furosemide (LASIX) 20 mg tablet Take 20 mg by mouth. Active losartan (COZAAR) 25 mg tablet Take 25 mg by mouth. Active megestroL (MEGACE) 40 mg tablet Take 40 mg by mouth. Active senna 8.6 mg tablet Take 1 tablet by mouth. 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 Not on file Not on file Last Filed Vital Signs Vital Sign Reading Time Taken Comments Blood Pressure 124/81 04/05/2024 10:06 AM EDT Pulse 91 04/05/2024 10:06 AM EDT Temperature 36.6 ??C (97.8 ??F) 04/05/2024 10:06 AM E DT Respiratory Rate - - Oxygen Saturation 91% 04/05/2024 10:06 AM EDT Inhaled Oxygen Concentration - - Weight 113.9 kg (251 lb) 04/05/2024 10:06 AM EDT Height 153 cm (5' 0.24 ) 04/05/2024 10:06 AM EDT Body Mass Index 48.64 04/05/2024 10:06 AM EDT Plan of Treatment Health Maintenance Due Date Last Done Comments Cervical Cancer Screening 1963 Cologuard 1963 Colon Cancer Screening 1963 Colonoscopy 1963 FOBT / Fit Test 1963 HIV Screening 1963 HPV and Pap Smear 1963 Hepatitis C Screening 1963 Pap Smear 1963 Sigmoidoscopy 1963 DTaP,Tdap,and Td Vaccines (1 - Tdap) 1985 Mammogram 2003 Zoster Vaccines (1 of 2) 2013 RSV Vaccine (60+ years old and patients) (1 - Risk 60-74 years 1-dose series) 2023 COVID-19 Vaccine ( - season) 2024 05/31/2021, 09/14/2020 Influenza Vaccine (#1) 2024 , 05/09/2022, 04/27/2021, Additional history exists Alcohol/Substance Use Screening 07/13/2024 Depression Screening and Follow-Up 07/13/2024 Social Drivers of Health Annual Screening 07/13/2024 Hepatitis B Vaccines Aged Out No long er eligible based on patient's age to complete this topic Pneumococcal Vaccine: Pediatric (0-5 Years) and At-Risk Patients (6-50 Years) Aged Out No longer eligible based on patient's age to complete this topic Insurance [employer] Care Teams Water Quality Assistant Relationship Specialty Start Date End Date Sumanth Layne [address] [place] [address] PCP - General Family Medicine 03/22/24
--- OUTSIDE RECORDS SUMMARY | 2024-08-25 10:20 | XMS_ITS | Encounter Summary ---
Author Organization [facility] Address [address] [address] Phone Care Team Providers Care Industrial Relations Manager Name Role Phone XiPilo mckinleydina INIGUEZ Primary Care Provider [phone] Reason for Visit * Reason Onset Date Comments Med Refill 08/10/2024 Encounter Details Date Type Department Care Team (Late Contact Info) Description 08/10/2024 Refill [facility] [address] [id number] Zainab Gil [address] [address] Social History Tobacco Use Types Packs/Day Years Used Date Smoking Tobacco: Never Smokeless Tobacco: Never Alcohol Use Standard Drinks/Week Comments Yes 0 (1 standard drink = 0.6 oz pur e alcohol) holidays/special occasion Comments Unknown Sex and Gender Information Value Date Recorded Sex Assigned at Not on file Legal Sex Female 2:15 PM EDT Gender Identity Not on file Sexual Orientation Not on file documented as of this encounter Plan of Treatment Upcoming Encounters Date Type Department Care Team (Late st Contact Info) Description 10/26/2024 8:30 AM EDT Office Visit [facility] [address] [phone] Kina Carcamo ARNP [address] [address] documented as of this encounter Visit Diagnoses Not on filedocumented in this encounter Care Teams Industrial Relations Manager Relationship Specialty Start Date End Date Sumanth Layne CNP [address] [place], [place] [id number] PCP - General 05/05/24 documented as of this encounter
--- OUTSIDE RECORDS SUMMARY | 2024-08-25 10:20 | XMS_ITS | Referral Summary ---
Author Organization [facility] Address [address] [place] [address] Care Team Providers Care Signal Worker Name Role Phone Sumanth Layne Primary Care Provider [phone] Allergies Active Allergy Reactions Criticality Noted Date [...] 04/05/2024 10:06 AM EDT Plan of Treatment Not on file [place] [place] [address] Care Teams Signal Worker Relationship Specialty Start Date End Date Sumanth Layne [address] [place] [address] PCP - General Family Medicine 03/22/24
--- OUTSIDE RECORDS SUMMARY | 2024-08-25 10:20 | XMS_ITS | Encounter Summary ---
Author Organization [facility] Address [address] [facility] [address] [place] [address] Phone Care Team Providers Care Manager Sas Name Role Phone Sumanth Layne CNP Primary Care Provider [phone] Encounter Details Date Type Department Care Team ([facility] Contact Info) Description 10/23/2021 Documentation Only [facility] [address] [facility] [address] [place] [phone] Sindy Astudillo MD Social History Tobacco Use Types Packs/Day Years [...] on file Sexual Orientation Not on file COVID-19 Exposure Response Date Recorded In the last month, have you been in contact with someone who was confirmed or suspected to have Coronavirus / COVID-19? No / Unsure 10/16/2021 1:21 PM EDT documented as of this encounter Plan of Treatment Upcoming Encounters Date Type Department Care Team (Late Contact Info) Description 10/26/2024 8:30 AM EDT Office Visit [facility] [address] [facility] [address] [place] [address] Kina Carcamo ARNP [address] [facility] [address] [place] [address] documented as of this encounter Visit Diagnoses Not on filedocumented in this encounter Care Teams Manager Sas Relationship Specialty Start Date End Date Sumanth Layne CNP [address] [place] [address] PCP - General 05/05/24 documented as of this encounter
--- OUTSIDE RECORDS SUMMARY | 2024-08-25 10:20 | XMS_ITS | Encounter Summary ---
Author Organization [facility] Address [address] [place] [address] Care Team Providers Care Advertising Solicitor Name Role Phone Sumanth Layne Primary Care Provider Encounter Details Date Type Department Care Team (Late st Contact Info) Description 03/25/2024 Lab Requisition [facility] [address] [place] [address] Jarad Henderson MD [address] [place] [id number] Social History Tobacco Use Types Packs/Day Years Used Date Smoking Tobacco: Never Assessed Comments Unknown Sex and Gender Information Value Date Recorded Sex Assigned at Female 03/02/2024 10:58 AM EDT Legal Sex Female 3:01 PM EDT Gender Identity Female 03/02/2024 10:58 AM EDT Sexual Orientation Not on file documented as of this encounter Plan of Treatment Not on file documented as of this encounter Procedures * Due to [place] [employer] law, this organization might not be sharing negative HIV tests. Procedure Name Priority Date/Time Associated Diagnosis Comments TISSUE EXAM Routine 03/25/2024 7:00 AM EDT documented in this encounter Results * Due to [place] [employer] law, this organization might not be sharing negative HIV tests. * Tissue Exam (03/25/2024 7:00 AM EDT) Final Diagnosis Review of Outside Slides Received from [facility] Labeled [id number] , Procedure Date 12/17/2023: Specimen #1 - Endometrium, Aspiration: - Blood only. Specimen #2 - Endometrium, Curettings: - Fragments of endometrial tissue with pseudodecidualization of the stroma and relatively inactive endometrial glands, consistent with exogenous hormone effect. - Background blood and hemosiderin-laden macrophages. - There is no evidence of hyperplasia or malignancy. [facility] 4 2:19 PM EDT [facility] Clinical History Dilated fluid-filled uterus. Hematometria. [facility] 4 2:19 PM EDT [facility] Gross Consult Client Facility: [facility] Slide Identification: [id number] Number of Glass Slides Received: 11 Number of Blocks Received: 0 Client Pathologist: Love Dickerson MD Accompanying Report Received: Yes [facility] 4 2:19 PM EDT [facility] Gross Description User Grossing complete by Komal Stanford on 03/25/2024 9:57 AM [facility] 4 2:19 PM EDT [facility] Best Block for Ancillary Studies N/A [facility] 4 2:19 PM EDT [facility] Embedded Images [facility] 4 2:19 PM EDT [facility] Resulting Agency Case was signed out at [facility], Department of Pathology, [facility] [place] [id number] [facility] 4 2:19 PM EDT [facility] Report Header Surgical Pathology Report ? Case: [id number] ? Authorizing Provider: ??Jarad Henderson MD ?Collected: ? 03/25/2024 0700 ? Ordering Location: ? [facility] ? Received: ?03/25/2024 0949 ? [facility] ? Pathologist: ? Soledad Hagan MD ? Specimen: ?Endometrium ? 4 2:19 PM EDT [facility] Tissue Specimen from endometrium / Unknown 03/25/2024 7:00 AM EDT 03/25/2024 9:49 AM EDT us Jarad Henderson MD LAB PATHOLOGY/CYTOLOGY OR DERABLES Final Result [facility] [address] [place], [place] [address] documented in this encounter Visit Diagnoses Not on filedocumented in this encounter Care Teams Advertising Solicitor Relationship Specialty Start Date End Date Sumanth Layne [address] [place] [address] PCP - General Family Medicine 03/22/24 documented as of this encounter
--- OUTSIDE RECORDS SUMMARY | 2024-08-25 10:20 | XMS_ITS | Clinical Summary ---
Author Organization [facility] Address [address] [place] [phone] Phone Care Team Providers Care Administrative Specialist Name Role Phone Sumanth Layne CNP Primary Care Provider [phone] Allergies Active Allergy Reactions Criticality Noted Date Comments Amlodipine Rash Low 01/08/2021 Chlorthalidone Rash Low 01/08/2021 Lisinopril Rash Low 01/08/2021 Medications acetaminophen (TYLENOL 8 HOUR) 650 MG 8 hr tablet Take 650 mg by mouth every 8 (eight) hours if needed for mild pain Do not crush, chew, or split. Active albuterol HFA (PROVENTIL HFA;VENTOLIN HFA) 108 (90 Base) MCG/ACT inhaler Inhale 2 puffs every 6 (six) hours if needed for wheezing Active aspirin-acetami nophen-caffeine (EXCEDRIN MIGRAINE) 250-250-65 MG per tablet Take 1 tablet by mouth every 6 (six) hours if needed (pain) Active Cetirizine HCl (ZYRTEC ALLERGY PO) Take 30 mg by mouth 1 (one) time each day Active famotidine (PEPCID) 20 MG tablet Take 20 mg by mouth 2 (two) times a day Active Multiple Vitamin (multivitamin) tablet Take 1 tablet by mouth 1 (one) time each day Active megestrol (MEGACE) 40 MG tablet Take 80 mg by mouth in the morning and 80 mg in the evening. 3 Active Omalizumab (XOLAIR SC) Inject under the skin Active losartan (COZAAR) 25 MG tablet Take 25 mg by mouth twice a day Active furosemide (LASIX) 20 MG tablet Take 1 tablet (20 mg total) by mouth in the morning and 1 tablet (20 mg total) in the evening. 180 tablet 3 4 12/09/19 25 Active apixaban (Eliquis) 5 MG tablet Take 5 mg by mouth in the morning and 5 mg in the evening. Active carvedilol (COREG) 6.25 MG tabletIndicatio ns:Chronic kidney disease, stage 2 (mild),Hyperten mu Take 1 tablet (6.25 mg total) by mouth in the morning and 1 tablet (6.25 mg total) in the evening. Take with meals. 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 180 tablet 3 5 08/11/19 26 Active cloNIDine (CATAPRES) 0.1 MG tablet TAKE 1 TABLET (0.1 MG TOTAL) BY MOUTH IN THE MORNING AND 1 TABLET (0.1 MG TOTAL) IN THE EVENING. 180 tablet 3 3 08/10/19 25 Discontinu ed(Reorder (does not appear on AVS)) cloNIDine (CATAPRES) 0.1 MG tablet Take 1 tablet (0.1 mg total) by mouth in the morning and 1 tablet (0.1 mg total) in the evening. 180 tablet 3 5 08/11/19 25 Discontinu ed(Reorder (does not appear on AVS)) Active Problems Problem Noted Date Diagnosed Date Chronic kidney disease, stage 2 (mild) 4 Overview (05/06/2024): Related to Hypertension No h/o proteinuria Avoid Nephrotoxins Optimize BP and DM control Assessment & Plan (05/06/2024 12:03 AM EDT): Stable Creatinine Normal Lytes No Anemia Normal bone mineralization No h/o proteinuria Assessment & Plan (11/06/2023 12:40 AM EDT): Stable Creat 1.0, eGFR as of 02/2023 Normal Lytes No Anemia Normal Ca/PO4/iPTH Rechecking Renal panel and urine alb/creat ratio Vitamin D deficiency, not otherwise specified Overview (11/06/2023): Monitor level Q 6-12 mos Assessment & Plan (11/06/2023 12:46 AM EDT): Last Vitamin D level was low at 19.0 as of 02/2023 On daily Vitamin D supplementation Rechecking level Postmenopausal bleeding 09/22/2022 Carcinoma in situ of uterus 09/22/2022 Obstructive sleep apnea syndrome 05/19/2022 Idiopathic angioedema 04/14/2022 Hypertension 04/14/2022 Overview (11/06/2023): Follow low NA diet Avoid NSAIDs/OTC Decongestant medications Target BP <120/80 Weight loss for healthy BMI Assessment & Plan (05/05/2024 9:32 AM EDT): Blood pressure is optimally controlled Self reduced Carvedilol to 12.5 QD d/t side effect of worsening hip arthritis pain and the change did improve this symptom. 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 May need to increase another medication if BP climbs Assessment & Plan (11/06/2023 12:44 AM EDT): Blood pressure running hypotensive with symptoms Taking Carvedilol 12.5 mg BID, Clonidine 0.1 mg BID, Furosemide 20 mg BID & Losartan 25 mg BID Mild BLE Edema Decrease Clonidine to 0.1 mg QHS Monitor BP at home, record and bring readings in to your next visit Call/follow up sooner if BP at home remains <100 systolic or if your off balance symptoms persist H/O: major abdominal surgery 04/14/2022 Hypernatremia 04/15/2021 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 0 02/07/2021 Resolved Problems Problem Noted Date Diagnosed Date Resolved Date Severe obesity 04/14/2022 04/14/2022 Gastroesophageal reflux disease 04/14/2022 04/14/2022 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 04/14/2022 Sleep apnea 10/14/2021 04/14/2022 Abscess of skin and/or subcutaneous tissue 07/13/2012 04/14/2022 Encounters Date Type Department Care Team Description 08/11/2024 Refill [facility] [address] [phone] Savanna Munroe [place] Hypertension (Primary Dx); 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 08/10/2024 Refill [facility] [address] [address] Zainab Gil from Last 3 Months Family History Medical History Relation Comments Hypertension Father Hypertension Mother Relation Status Comments Father Mother Social History Tobacco Use Types Packs/Day Years Used Date Smoking Tobacco: Never Smokeless Tobacco: Never Tobacco Cessation:Counseling Given: No Alcohol Use Standard Drinks/Week Comments Yes 0 (1 standard drink = 0.6 oz pur e alcohol) holidays/special occasion Comments Unknown Sex and Gender Information Value Date Recorded Sex Assigned at Not on file Legal Sex Female 2:15 PM EDT Gender Identity Not on file Sexual Orientation Not on file Last Filed Vital Signs Vital Sign Reading Time Taken Comments Blood Pressure 104/80 05/05/2024 8:48 AM EDT Pulse 78 05/05/2024 8:48 AM EDT Temperature - - Respiratory Rate - - Oxygen Saturation 97% 03/10/2023 2:27 PM EDT Inhaled Oxygen Concentration - - Weight 115 kg (254 lb) 05/05/2024 8:48 AM EDT Height 152.4 cm (5') 03/10/2023 2:27 PM EDT Body Mass Index 49.61 03/10/2023 2:27 PM EDT Plan of Treatment Upcoming Encounters Date Type Department Care Team (Late st Contact Info) Description 10/26/2024 8:30 AM EDT Office Visit [facility] [address] [address] Kina Carcamo ARNP [address] [phone] Health Maintenance Due Date Last Done Comments Breast Cancer Screening 1965 Pneumococcal Vaccine: Pediat rics (0 to 5 Years) and At-Risk Patients (6 to 64 Years) (1 of 2 - PCV) 1969 Colorectal Cancer Screening: Annual FOBT 2012 Colorectal Cancer Screening: Colonoscopy 2012 Colorectal Cancer Screening: Sigmoidoscopy 2012 Influenza Vaccine (#1) 2024 Hepatitis B Vaccine Aged Out No longe r eligible based on patient's age to complete this topic Insurance UNICARE UNICARE Care Teams Administrative Specialist Relationship Specialty Start Date End Date Sumanth Layne CNP [address] [place] [address] PCP - General 05/05/24
--- OUTSIDE RECORDS SUMMARY | 2024-08-25 10:20 | XMS_ITS | Encounter Summary ---
Author Organization [facility] Address [address] [facility] [address] [place] [address] Phone Care Team Providers Care Optics Manufacturing Technician Name Role Phone Sumanth Layne CNP Primary Care Provider [phone] Reason for Visit * Reason Onset Date Comments Med Refill 08/11/2024 Encounter Details Date Type Department Care Team (Late st Contact Info) Description 08/11/2024 Refill [facility] [address] [facility] [address] [place] [phone] Savanna Munroe [place] [address] [facility] [address] [place] [phone] Hypertension (Primary Dx); 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 Social History Tobacco Use Types Packs/Day Years [...] Office Visit [facility] [address] [facility] [address] [place] [address] Kina Carcamo ARNP [address] [facility] [address] [place] [address] documented as of this encounter Visit Diagnoses Diagnosis Hypertension- Primary 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
== END 2024-08-25 10:38 | disposition home or self-care (01) ==
LOC: HO.HMCFM 09:49
PROVIDERS: PCP Nurse Practitioner Family; Visit Provider Nurse Practitioner Family
DX: I10 Essential (primary) hypertension (principal); E11.9 Type 2 diabetes mellitus without complications; M16.0 Bilateral primary osteoarthritis of hip; F43.9 Reaction to severe stress, unspecified; Z13.9 Encounter for screening, unspecified

== ENCOUNTER → 2024-08-25 09:49 | Outpatient (BNVA) | payer OTHER, SELFPAY | PROVIDERS: PCP Nurse Practitioner Family; Visit Provider Nurse Practitioner Family | DX: I10 Essential (primary) hypertension (principal); E11.9 Type 2 diabetes mellitus without complications; M16.0 Bilateral primary osteoarthritis of hip; F43.9 Reaction to severe stress, unspecified | CPT/HCPCS: 83036; 96127; 99212 ==